=== PATIENT | male | born 1960 | race African-American/Black ===

== ENCOUNTER 2016-09-19 16:08 | Emergency (ER) | payer OTHER ==
[~2016-09-19] VITALS: Ht 175.3 cm; Wt 63.4 kg
[~2016-09-19 16:08] MED LIST: HYDR12.56; PERC5TAB12 PO; ZOFR4TAB3 SL
[2016-09-19 16:14] VITALS: BP 155/106; PULSE 68; RESP 16; TEMP 99.7; O2SAT 100
[2016-09-19] MEDS ORDERED: HYDR12.57 PO (16:31)
[2016-09-19 16:46] LABS: AUTOMATED NEUTROPHIL # 1.2 TH/MM3 (1.8-7.7); BASOPHIL # 0.1 TH/MM3 (0-0.2); BASOPHIL % 4.6 % (0.0-2.0); EOSINOPHIL # 0.1 TH/MM3 (0-0.4); EOSINOPHIL % 2.8 % (0.0-4.0); LYMPH % 26.2 % (9.0-44.0); LYMPHOCYTE # 0.6 TH/MM3 (1.0-4.8); MEAN CELL VOLUME 87.6 FL (80.0-100.0); MEAN CORPUSCULAR HEMOGLOBIN 29.3 PG (27.0-34.0); MEAN CORPUSCULAR HGB CONC 33.4 % (32.0-36.0); MONO % 13.3 % (0.0-8.0); NEUT % 53.1 % (16.0-70.0); PLATELET COUNT 210 TH/MM3 (150-450); RED BLOOD COUNT 4.46 MIL/MM3 (4.50-5.90); WHITE BLOOD COUNT 2.3 TH/MM3 (4.0-11.0)
[2016-09-19 16:52] LABS: HEMO FLAGS AUTO DIFF
[2016-09-19 16:55] LABS: CHLORIDE 106 MEQ/L (98-107); POTASSIUM 3.6 MEQ/L (3.5-5.1); SODIUM (NA) 142 MEQ/L (136-145)
--- NOTE | 2016-09-19 16:55 | PD ---
HPI Chief Complaint: Musculoskeletal Complaint Time Seen by Provider: 16:19 Travel History International Travel<30 days: No Contact w/Intl Traveler<30days: No Traveled to known affect area: No History of Present Illness HPI This 56-year-old male is complaining of pain and weakness in his legs. He says his symptoms started last Tuesday and got progressively worse. Says it is extremely painful last night and she could not get comfortable. He has been able to walk but it is not his normal gait. He has some tingling in his legs which is greater when the pain is severe. The pain is aggravated by walking. He says that on August 24 after doing a lot of heavy lifting at work he had some bad pain in his neck. He had some pain in his legs at that time but it seemed to get better. He has been having some pain in both sides of his groin. He had a right inguinal herniorrhaphy. He then was noted to have some left inguinal adenopathy palpable. Ears ago. 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 He was sent to an infectious disease specialist and apparently diagnosed with acute fever and was treated with He was having some pain in both sides of groin last week. She saw Dr. Lagos and had a CT scan which was negative. He has a history of hypertension. He does smoke. He has been having some midline back pain PFSH Past Medical History Cardiovascular Problems: Yes (htn) Diminished Hearing: No Hypertension: Yes Immunizations Current: Yes Influenza Vaccination: Yes ?: Not Past Surgical History Abdominal Surgery: Yes (waldo inguinal hernia repair) Social History Alcohol Use: Yes (social) Tobacco Use: Yes (1/2 pk a day) Substance Use: No Allergies-Medications (Allergen,Severity, Reaction): Coded Allergies: No Known Allergies (Verified , 09/19/16) Reported Meds & Prescriptions Reported Meds & Active Scripts Active Reported Hydrochlorothiazide 12.5 Mg Cap 12.5 Mg PO DAILY Review of Systems General / Constitutional: No: Fever, Chills Eyes: No: Blurred Vision HENT: No: Headaches, Vertigo Cardiovascular: No: Chest Pain or Discomfort Respiratory: No: Cough Gastrointestinal: No: Nausea Musculoskeletal: Positive: Myalgias, Pain Skin: No Rash, No Itching Neurologic: Positive: Weakness Hematologic/Lymphatic: No: Easy Bruising Physical Exam Narrative GENERAL: Well-developed male SKIN: Warm and dry. HEAD: Atraumatic. Normocephalic. EYES: Pupils equal and round. No scleral icterus. No injection or drainage. ENT: No nasal bleeding or discharge. Mucous membranes pink and moist. NECK: Trachea midline. No JVD. CARDIOVASCULAR: Regular rate and rhythm. No murmur appreciated. RESPIRATORY: No accessory muscle use. Clear to auscultation. Breath sounds equal bilaterally. GASTROINTESTINAL: Abdomen soft, non-tender, nondistended. Hepatic and splenic margins not palpable. MUSCULOSKELETAL: No obvious deformities. No clubbing. No cyanosis. No edema. There are good peripheral pulses NEUROLOGICAL: Awake and alert. No obvious cranial nerve deficits. Speech is normal. Strength in the arms is normal. He has 4 over 5 strength in the legs. He has 4 over 5 strength in extension at the knee and in plantar and dorsiflexion of the feet. The findings are bilateral.. Sensation is grossly intact though he says he feels some tingling. Patellar reflexes are brisk bilaterally. Babinski's are downgoing bilaterally PSYCHIATRIC: Appropriate mood and affect; insight and judgment normal. Data Data Last Documented VS Vital Signs Date Time Temp Pulse Resp B/P Pulse Ox O2 Delivery O2 Flow Rate FiO2 09/19/16 19:36 64 16 155/87 100 Room Air 09/19/16 16:14 99.7 Orders Complete Blood Count With Diff (09/19/16 16:35) Comprehensive Metabolic Panel (09/19/16 16:35) Creatine Kinase (Cpk) (09/19/16 16:35) C-Reactive Protein (Crp) (09/19/16 16:35) Urinalysis - C+S If Indicated (09/19/16 16:35) Westergren Sedimentation Rate (09/19/16 16:35) Magnesium (Mg) (09/19/16 16:35) Thyroid Stimulating Hormone (09/19/16 16:35) Mri C Spine W/O Contrast (09/19/16 16:44) Mri T Spine W/O Contrast (09/19/16 16:44) Mri L Spine W/O Contrast (09/19/16 16:44) Chest, Single Ap (09/19/16 16:44) Ondansetron Inj (Zofran Inj) (09/19/16 17:00) Hydromorphone Pf Inj (Dilaudid Pf Inj) (09/19/16 17:00) Hydromorphone Pf Inj (Dilaudid Pf Inj) (09/19/16 17:45) Hydromorphone Pf Inj (Dilaudid Pf Inj) (09/19/16 18:30) Dexamethasone Inj (Decadron Inj) (09/19/16 19:30) Labs Laboratory Tests Test 09/19/16 09/19/16 16:35 18:55 White Blood Count 2.3 TH/MM3 Red Blood Count 4.46 MIL/MM3 Hemoglobin 13.1 GM/DL Hematocrit 39.0 % Mean Corpuscular Volume 87.6 FL Mean Corpuscular Hemoglobin 29.3 PG Mean Corpuscular Hemoglobin 33.4 % Concent Red Cell Distribution Width 12.0 % Platelet Count 210 TH/MM3 Mean Platelet Volume 9.5 FL Neutrophils (%) (Auto) 53.1 % Lymphocytes (%) (Auto) 26.2 % Monocytes (%) (Auto) 13.3 % Eosinophils (%) (Auto) 2.8 % Basophils (%) (Auto) 4.6 % Neutrophils # (Auto) 1.2 TH/MM3 Lymphocytes # (Auto) 0.6 TH/MM3 Monocytes # (Auto) 0.3 TH/MM3 Eosinophils # (Auto) 0.1 TH/MM3 Basophils # (Auto) 0.1 TH/MM3 CBC Comment AUTO DIFF Differential Total Cells 100 Counted Neutrophils % (Manual) 56 % Band Neutrophils % 3 % Lymphocytes % 28 % Monocytes % 13 % Neutrophils # (Manual) 1.4 TH/MM3 Differential Comment FINAL DIFF MANUAL Erythrocyte Sedimentation Rate 37 mm/hr Sodium Level 142 MEQ/L Potassium Level 3.6 MEQ/L Chloride Level 106 MEQ/L Carbon Dioxide Level 29.1 MEQ/L Anion Gap 7 MEQ/L Blood Urea Nitrogen 12 MG/DL Creatinine 1.10 MG/DL Estimat Glomerular Filtration 85 ML/MIN Rate Random Glucose 99 MG/DL Calcium Level 8.4 MG/DL Magnesium Level 2.2 MG/DL Total Bilirubin 0.5 MG/DL Aspartate Amino Transf 30 U/L (AST/SGOT) Alanine Aminotransferase 37 U/L (ALT/SGPT) Alkaline Phosphatase 71 U/L Total Creatine Kinase 104 U/L C-Reactive Protein 0.97 MG/DL Total Protein 8.2 GM/DL Albumin 3.8 GM/DL Thyroid Stimulating Hormone 2.310 uIU/ML 3rd Gen Urine Collection Type CLEAN CATCH Urine Color YELLOW Urine Turbidity SLIGHT Urine pH 6.0 Urine Specific [place] 1.019 Urine Protein NEG mg/dL Urine Glucose (UA) NEG mg/dL Urine Ketones NEG mg/dL Urine Occult Blood NEG Urine Nitrite NEG Urine Bilirubin NEG Urine Leukocyte Esterase NEG Urine Squamous Epithelial 0-5 /hpf Cells Urine Amorphous Sediment MOD Urine Mucus OCC /lpf Microscopic Urinalysis Comment CULT NOT INDICATED MDM Medical Decision Making Medical Screen Exam Complete: Yes Emergency Medical Condition: Yes Medical Record Reviewed: Yes Differential Diagnosis Differential includes myelopathy, polyneuritis Narrative Course he is quite comfortable with pain and given pain medication with really minimal response. His areas that hurt him are nontender to touch and are not swollen. His white count is low at 2.3 and sedimentation rate is elevated at 37. MRI of the thoracic and lumbar spine did not show any myelopathy. On the cervical spine scan there is T2 prolongation in the anterior portion of the lower cervical cord myelopathy cannot be excluded. There is no evidence of disc bulge or protrusion. I have discussed the case with Dr. Arriaga. He recommends Decadron 4 mg every 6, admission to the [facility] with consults to him and to neurology. Repeat examination after some pain medication actually shows what appears to be increased strength in plantar and dorsiflexion of the foot though extension of the knee is still quite weak. I discussed the patient that we would admit him to [facility] and follow this plan. At this point the patient says he cannot be admitted and is insisting on leaving. He says he will go to [facility] in the morning for admission I have explained to him I don't think this is advisable. We have not established a firm diagnosis and there is risk of paralysis. The risk of paralysis Was explained to the patient. He is alert and coherent and understands. He will sign against advice. Diagnosis Primary Impression: Bilateral leg weakness Disposition: 07 AGAINST MEDICAL ADVICE Mike Garcia MD Sep 19, 2016 16:55
[2016-09-19 16:59] LABS: ANION GAP 7 MEQ/L (5-15); BICARBONATE 29.1 MEQ/L (21.0-32.0); BLOOD UREA NITROGEN 12 MG/DL (7-18); MAGNESIUM 2.2 MG/DL (1.5-2.5)
[2016-09-19] MEDS ORDERED: HYDROmorphone HCL PF 1 MG/ML VIAL IV PUSH ONE ×3 (17:00→18:30)
[2016-09-19] MEDS ORDERED: ONDANSETRON HCL 4 MG/2 ML VIAL IV PUSH ONE (17:00)
[2016-09-19 17:02] LABS: ALT (GPT) 37 U/L (12-78); AST (GOT) 30 U/L (15-37); GLOMERULAR FILTRATION RATE 85 ML/MIN (>89)
[2016-09-19 17:03] LABS: TOTAL BILIRUBIN ADULT 0.5 MG/DL (0.2-1.0)
[2016-09-19 17:05] LABS: ALKALINE PHOSPHATASE 71 U/L (45-117); CREATINE KINASE 104 U/L (39-308)
[2016-09-19 17:07] VITALS: BP 157/83; PULSE 67; RESP 18; O2SAT 98
[2016-09-19 17:12] LABS: BANDS 3 % (0-6); NEUTROPHIL # MANUAL DIFF 1.4 TH/MM3 (1.8-7.7); POLYS (SEG NEUTROPHILS) 56 % (16-70); WBC DIFF SAMPLE 100
[2016-09-19 17:13] LABS: SCAN/DIFF FINAL DIFF MANUAL
--- NOTE | 2016-09-19 17:15 | RADHPO ---
EXAM DATE/TIME: 09/19/2016 16:54 [facility] COMPARISON: CHEST SINGLE AP, April 30, 2011, 15:15. INDICATIONS : Mass. bilateral leg swelling MEDICAL HISTORY : None. SURGICAL HISTORY : None. ENCOUNTER: Initial ACUITY: 2 days PAIN SCORE: 0/10 LOCATION: Bilateral chest FINDINGS: A single view of the chest demonstrates the lungs to be symmetrically aerated without evidence of mas s, infiltrate or effusion. The cardiomediastinal contours are unremarkable. Osseous structures are intact. CONCLUSION: The lungs are clear. Shine Mejia MD on September 19, 2016 at 17:14 Board Certified Radiologist. This report was verified electronically.
--- NOTE | 2016-09-19 18:33 | RADHPO ---
EXAM DATE/TIME: 09/19/2016 18:21 [facility] COMPARISON: No previous studies available for comparison. INDICATIONS : Lower extremity pain. MEDICAL HISTORY : Hypertension. SURGICAL HISTORY : Inguinal hernia repair. ENCOUNTER: Subsequent ACUITY: 2 weeks PAIN SCORE: 2/10 LOCATION: Bilateral legs TECHNIQUE: Multiplanar multisequence MRI of the thoracic spine was performed. FINDINGS: Image quality is compromised by motion artifact. Small abnormalities may go undetected. The study i s still diagnostic for evaluation of marrow abnormalities, compression deformities, and epidural impr essions. There is normal alignment of the vertebral bodies of the thoracic spine preservation of mahsa tebral body height. No signal abnormality seen. There is normal hydration of the inter vertebral di scs. No significant epidural compression seen. The thoracic cord is normal in dimension and no foca l signal abnormality is seen. The conus is at the level of T12-L1. CONCLUSION: No gross abnormality seen. Shine Mejia MD on September 19, 2016 at 18:28 Board Certified Radiologist. This report was verified electronically.
--- NOTE | 2016-09-19 18:51 | RADHPO ---
EXAM DATE/TIME: 09/19/2016 18:21 [facility] COMPARISON: CHEST SINGLE AP, September 19, 2016, 16:54. INDICATIONS : Lower extremity pain. MEDICAL HISTORY : Hypertension. SURGICAL HISTORY : Inguinal hernia repair. ENCOUNTER: Subsequent ACUITY: 2 weeks PAIN SCORE: 2/10 LOCATION: Bilateral legs TECHNIQUE: Multiplanar multisequence MRI of the lumbar spine was performed without contrast. FINDINGS: The most caudal appearing lumbar vertebra is numbered as L6. This examination was performed in conju nction with entire spine imaging ND counting convention begins in the cervical spine. VERTEBRAE: Homogeneous signal. Normal alignment. CONUS: Normal level and configuration. T12-L1: The thecal sac has a normal diameter. No evidence of disc bulge or protrusion. The neural foramina are patent bilaterally. L1-L2: The thecal sac has a normal diameter. No evidence of disc bulge or protrusion. The neural foramina are patent bilaterally. L2-L3: The thecal sac has a normal diameter. No evidence of disc bulge or protrusion. The neural foramina are patent bilaterally. L3-L4: The thecal sac has a normal diameter. No evidence of disc bulge or protrusion. The neural foramina are patent bilaterally. L4-L5: The thecal sac has a normal diameter. No evidence of disc bulge or protrusion. The neural foramina are patent bilaterally. L5-S1: High intensity zone of signal in the posterior annulus and protrusion of the posterior disc contained within the epidural fat. No deformity or deviation of the S1 nerve roots and the neural foramina ar e patent bilaterally. CONCLUSION: Central disc protrusion at L6/S1 with associated annular tear contained within the epidural fat and w ithout extension into the neural foramina or neural impingement. Shine Mejia MD on September 19, 2016 at 18:46 Board Certified Radiologist. This report was verified electronically.
--- NOTE | 2016-09-19 19:00 | RADHPO ---
EXAM DATE/TIME: 09/19/2016 18:21 [facility] COMPARISON: No previous studies available for comparison. INDICATIONS : Lower extremity pain. MEDICAL HISTORY : Hypertension. SURGICAL HISTORY : Inguinal hernia repair. ENCOUNTER: Subsequent ACUITY: 2 weeks PAIN SCORE: 2/10 LOCATION: Bilateral legs TECHNIQUE: Multiplanar, multisequence MRI examination of the cervical spine was performed. FINDINGS: VERTEBRAE: Normal vertebral body height. Homogeneous marrow signal. ALIGNMENT: No evidence of subluxation. CORD: Questionable T2 prolongation in the anterior one third of the substance of the cervical spine C5-C7. No evidence of cord compression. There is very little CSF about the cervical cord due to a narrow c onfiguration of the bony spinal canal. No signal abnormalities within the substance of the cord. No evidence of syrinx.. POST FOSSA: The cerebellar tonsils are normal in position. C2-C3: Smooth margins to the thecal sac. No evidence of disc bulge or protrusion. The neural foramen are p atent. C3-C4: Smooth margins the thecal sac. No evidence of disc bulge or protrusion. The neural foramina are pat ent. C4-C5: Smooth margins the thecal sac. No evidence of disc bulge or protrusion. The neural foramina are pat ent. C5-C6: Smooth margins to the thecal sac. No evidence of disc bulge or protrusion. The neural foramina are patent. C6-C7: Smooth margins to the thecal sac. There is no evidence of disc bulge or protrusion. The neural fora nimco are patent bilaterally. C7-T1: Smooth margins to the thecal sac. No evidence of disc bulge or protrusion. The neural foramen are p atent. CONCLUSION: The clinical findings is suggestive of T2 prolongation in the anterior traction of the lower cervical cord. Cannot exclude myelopathy. No evidence of disc bulge or protrusion. Shine Mejia MD on September 19, 2016 at 18:53 Board Certified Radiologist. This report was verified electronically.
[2016-09-19 19:08] LABS: BLOOD, URINE NEG (NEG); GLUCOSE,URINE NEG (NEG); KETONE, URINE NEG (NEG); NITRITE,URINE NEG (NEG)
[2016-09-19 19:18] LABS: METHOD OF COLLECTION CLEAN CATCH; URINE COLOR YELLOW (YELLW/STRAW)
[2016-09-19 19:20] LABS: MUCUS URINE OCC /lpf (OCC); SQUAMOUS EPITHELIAL CELL URINE 0-5 /hpf (0-5)
[2016-09-19 19:22] LABS: COMMENT (UR) CULT NOT INDICATED; CULTURE IF INDICATED CULT NOT INDICATED
[2016-09-19] MEDS ORDERED: DEXAMETHASONE SOD PHOS 4 MG/ML VIAL IV PUSH ONE (19:30)
[2016-09-19 19:36] VITALS: BP 155/87; PULSE 64; RESP 16; O2SAT 100
== END 2016-09-19 19:53 | disposition left against medical advice (07) ==
LOC: PHED 16:08
DX: R53.1 Weakness (principal); I10 Essential (primary) hypertension; M54.2 Cervicalgia; M79.1 Myalgia; F17.200 Nicotine dependence, unspecified, uncomplicated; Z79.899 Other long term (current) drug therapy
CPT/HCPCS: 71010; 72141; 72146; 72148; 80053; 81001; 82550; 83735; 84443; 85007; 85027; 85652; 86140; 96374; 96375; 96376; 99285; J1100; J1170; J2405

== ENCOUNTER 2016-09-20 12:54 | Inpatient (IN) | payer SELFPAY ==
[~2016-09-20] VITALS: Ht 175.3 cm; Wt 67.0 kg
[~2016-09-20 12:54] MED LIST changes: -HYDR12.56; +HYDR12.57 PO; -PERC5TAB12 PO; -ZOFR4TAB3 SL
[2016-09-20 12:56] VITALS: BP 179/91; PULSE 86; RESP 15; TEMP 98.2; O2SAT 97
--- NOTE | 2016-09-20 13:38 | PD ---
HPI Chief Complaint: Pain: Acute or Chronic Time Seen by Provider: 13:35 Travel History International Travel<30 days: No Contact w/Intl Traveler<30days: No Traveled to known affect area: No History of Present Illness HPI 56-year-old male with history of hypertension presents to emergency department for admission. Patient was seen and evaluated last night in the emergency department for evaluation of lower extremity pain and weakness worsening over the last several months. He decided to be evaluated yesterday due to worsening and his gait becoming abnormal. MRI was complete and showed T2 prolongation of the anterior traction of the lower cervical cord. Myelopathy cannot be excluded. Dr. Spring discussed the patient with Dr. Arriaga, neurosurgeon who was on -call less evening. He recommended admission for Decadron IV every 6 hours. Patient left AGAINST MEDICAL ADVICE last evening. He returns today for admission. He does report after Decadron that he some of his symptoms have improved but he understands the potential seriousness and decided to return to the emergency department. [facility] Past Medical History Cardiovascular Problems: Yes (htn) Diminished Hearing: No Hypertension: Yes Immunizations Current: Yes Past Surgical History Abdominal Surgery: Yes (waldo inguinal hernia repair) Social History Alcohol Use: Yes (social) Tobacco Use: Yes (1/2 pk a day) Substance Use: No Allergies-Medications (Allergen,Severity, Reaction): Coded Allergies: No Known Allergies (Verified , 09/19/16) Reported Meds & Prescriptions Reported Meds & Active Scripts Active Reported Hydrochlorothiazide 12.5 Mg Cap 12.5 Mg PO DAILY Review of Systems Except as stated in HPI: all other systems reviewed are Neg Physical Exam Narrative GENERAL: Well-nourished male patient who is ambulatory here in the emergency department and in no acute distress SKIN: Warm and dry. HEAD: Atraumatic. Normocephalic. EYES: Pupils equal and round. No scleral icterus. No injection or drainage. ENT: No nasal bleeding or discharge. Mucous membranes pink and moist. NECK: Trachea midline. No JVD. CARDIOVASCULAR: Regular rate and rhythm. No murmur appreciated. RESPIRATORY: No accessory muscle use. Clear to auscultation. Breath sounds equal bilaterally. GASTROINTESTINAL: Abdomen soft, non-tender, nondistended. Hepatic and splenic margins not palpable. MUSCULOSKELETAL: No obvious deformities. No clubbing. No cyanosis. No edema. NEUROLOGICAL: Awake and alert. No obvious cranial nerve deficits. Normal speech. PSYCHIATRIC: Appropriate mood and affect; insight and judgment normal. Data Data Last Documented VS Vital Signs Date Time Temp Pulse Resp B/P Pulse Ox O2 Delivery O2 Flow Rate FiO2 09/20/16 12:56 98.2 86 15 179/91 97 Orders Consult Neurology (09/20/16 ) Consult Neurosurgery (09/20/16 ) Dexamethasone Inj (Decadron Inj) (09/20/16 14:15) Iv Access Insert/Monitor (09/20/16 14:15) Admit Order (Ed Use Only) (09/20/16 14:25) Admit To Inpatient (09/20/16 ) Vital Signs (Adult) Q4H (09/20/16 14:24) Activity Bed Rest (09/20/16 14:24) Diet Regular Basic (09/20/16 Dinner) Sodium Chlor 0.45% 1000 Ml Inj (08/23 Ns 1 (09/20/16 14:24) Sodium Chloride 0.9% Flush (Ns Flush) (09/20/16 14:30) Sodium Chloride 0.9% Flush (Ns Flush) (09/20/16 21:00) Ondansetron Inj (Zofran Inj) (09/20/16 14:30) Docusate Sodium (Colace) (09/20/16 14:30) Basic Metabolic Panel (Bmp) (09/21/16 06:00) Complete Blood Count With Diff (09/21/16 06:00) Heparin Inj (Heparin Inj) (09/20/16 14:30) Naloxone Inj (Narcan Inj) (09/20/16 14:30) Inpatient Certification (09/20/16 ) [facility] Medical Decision Making Medical Screen Exam Complete: Yes Emergency Medical Condition: Yes Medical Record Reviewed: Yes Differential Diagnosis Myelopathy versus radiculopathy versus discogenic pain versus sciatica Narrative Course 56-year-old male presents to emergency department for admission and IV Decadron per neurosurgery recommendation after checking himself out AGAINST MEDICAL ADVICE less evening. MRI was completed last night and showed a T2 prolongation of the anterior traction of the lower cervical cord and myelopathy cannot be excluded. I have assessed the patient here in triage. Complete workup was done last evening. Once a medical bed becomes available, patient will be transferred and care assumed by that provider. Condition: Stable Yasmin Sheridan Sep 20, 2016 13:38
[2016-09-20] MEDS ORDERED: DEXAMETHASONE SOD PHOS 4 MG/ML VIAL IV PUSH ONE (14:15)
--- NOTE | 2016-09-20 14:26 | PD ---
Physical Exam Date Seen by Provider: Sep 20, 2016 Time Seen by Provider: 14:17 Narrative This is a 56-year-old male presents to the emergency department for admission. He was seen last night at [facility]. He presented there complaining of pain and weakness in his bilateral legs that started last Tuesday and been progressively worsening. He states that he has an abnormal gait from this issue. He also reports some paresthesias. He does report pain in the bilateral groin as well as some low back pain as well. Does report a history of left inguinal adenopathy. Patient does report a history of hypertension and takes one blood pressure medication. He also is taking tramadol as needed for the pain. MRIs were completed. MRI thoracic and lumbar spine did not show any myelopathy. On the cervical spine and, there is a T2 prolongation the anterior portion lower cervical cord a myelopathy cannot be excluded. The emergency physician Spoke to Dr. Arriaga he recommended Decadron 4 mg every 6 hours, admission and consult to Dr. Arriaga and urology. However, the patient states he had some things to do this morning sustained AGAINST MEDICAL ADVICE and now presents for admission. GENERAL: Well-developed well-nourished male patient, afebrile. SKIN: Warm and dry. HEAD: Normocephalic. Atraumatic EYES: No scleral icterus. No injection or drainage. NECK: Supple, trachea midline. No JVD or lymphadenopathy. CARDIOVASCULAR: Regular rate and rhythm without murmurs, gallops, or rubs. Bilateral radial and pedal pulses 2+ RESPIRATORY: Breath sounds equal bilaterally. No accessory muscle use. Lungs sounds clear to auscultation GASTROINTESTINAL: Abdomen soft, non-tender, nondistended. MUSCULOSKELETAL: No cyanosis, or edema. Bilateral lower extremity strength 4/ 5. Bilateral upper extremity strength 5/5. Sensation is grossly intact though he says he feels some tingling. BACK: Nontender without obvious deformity. No CVA tenderness. Data Data Last Documented VS Vital Signs Date Time Temp Pulse Resp B/P Pulse Ox O2 Delivery O2 Flow Rate FiO2 09/20/16 12:56 98.2 86 15 179/91 97 Orders Consult Neurology (09/20/16 ) Consult Neurosurgery (09/20/16 ) Dexamethasone Inj (Decadron Inj) (09/20/16 14:15) Iv Access Insert/Monitor (09/20/16 14:15) [facility] Medical Record Reviewed: Yes Supervised Visit with YANY: Yes Differential Diagnosis myelopathy, polyneuritis, electrolyte abnormality Narrative Course 56-year-old male presents to the emergency department for admission. He was seen last night and was to be admitted for myelopathy with prolongation of T2 in the anterior portion of the lower cervical cord. Patient left AMA and came in today. Patient is given Decadron 4 mg IV. IV access established. I suspected Dr. Lema with [facility] hospitalist who accepted admission. Consults were placed for Dr. Arriaga and neurology. Diagnosis Primary Impression: Myelopathy Admitting Information Admitting Physician Requests: Observation Zuleika Horne Sep 20, 2016 14:26
[2016-09-20] MEDS ORDERED: DOCUSATE SODIUM 100 MG CAP PO SCH (14:30)
[2016-09-20] MEDS ORDERED: SODIUM CHLORIDE 0.9% FLUSH 5 ML FLUSH FLUSH PRN (14:30)
[2016-09-20] MEDS ORDERED: NALOXONE HCL 0.4 MG/ML AMP IV PRN (14:30)
[2016-09-20] MEDS ORDERED: ACETAMINOPHEN/HYDROcodone 325 MG/5 MG TAB PO ONE (15:00)
[2016-09-20] MEDS: SODIUM CHLOR 0.45% 1000 ML INJ 1,000 ML IV SCH (15:00)
[2016-09-20] MEDS ORDERED: HEPARIN SODIUM - SQ 10,000 UNITS/ML VIAL SQ SCH (15:00)
--- NOTE | 2016-09-20 15:00 | PD ---
Data Data Last Documented VS Vital Signs Date Time Temp Pulse Resp B/P Pulse Ox O2 Delivery O2 Flow Rate FiO2 09/20/16 12:56 98.2 86 15 179/91 97 Orders Consult Neurology (09/20/16 ) Consult Neurosurgery (09/20/16 ) Dexamethasone Inj (Decadron Inj) (09/20/16 14:15) Iv Access Insert/Monitor (09/20/16 14:15) Admit Order (Ed Use Only) (09/20/16 14:25) MDM Supervised Visit with YANY: Yes Narrative Course I, Dr. Lopez, have reviewed the advance practice practioner's documentation and am in agreement, met with the patient face to face, made the diagnosis, and the medical decision making was done by me. *My assessment and Findings: Thin male here with complaint of pain and weakness in the bilateral lower extremities lasting approximately 5-6 days. Seen at our [place] emergency department yesterday with an abnormal MRI of the cervical spine, recommended admission the patient signed out AMA as he needed to get things done at home, presents back to the ER today with persistent symptoms requesting admission. On exam patient has 4 out of 5 strength in the bilateral lower extremities. His reflexes are 1+, sensation is grossly intact but he does complain of subjective paresthesias. Differential includes neuropathy, cervical myelopathy, other. Patient will be admitted given previous imaging yesterday with neurosurgery and neurology consults, steroids. Diagnosis Primary Impression: Myelopathy Luiza Lopez MD Sep 20, 2016 15:00
--- NOTE | 2016-09-20 17:48 | PD.PN.STU ---
Subjective Remarks Subjective: This is a 56 year old man who presented to the ED with a complaint of pain and weakness in the bilateral lower extremities. He says this began Donte night. He describes the pain as a tingling sensation which causes his legs to tense and feel numb. He became concerned when it began to affect his gait. He denies injury to the spinal cord. He denies saddle anesthesia. He went to [facility] 09/19 and had an abnormal MRI of the cervical spine. He was told to come to [facility] but he left AMA to return home because he "had some things to do at home." PMH: Hypertension Medications: HCTZ 12.5 mg PO daily PSH: bilateral inguinal hernia repair biopsy lymph node in left groin for suspected hernia FH: unremarkable Allergies: NKDA Social history: Alcohol: socially Tobacco: /2 ppd Illicit Drug Use: denies Review of systems: Positive: weakness in bilateral lower extremities, pain in bilateral lower extremities Negative: chest pain, shortness of breath, nausea/vomiting, loss of consciousness, dysuria Objective Vitals Vital Signs Date Time Temp Pulse Resp B/P Pulse Ox O2 Delivery O2 Flow Rate FiO2 09/20/16 12:56 98.2 86 15 179/91 97 Other Results ESR: 37 CRP: 0.97 Q fever Phase II IgG Ab: Positive Imaging MRI of the cervical spine showed T2 prolongation of anterior portion lower cervical cord. MRI of the lumbar spine showed central disc protrusion at L6/S2 with associated annular tear contained within the epidural fat and without extension into the neural foramina or neural impingement. Objective Remarks General: thin man who is alert, awake, oriented x3 HEENT: pupils reactive to light, equal, extraocular movements intact Neck: trachea midline and supple, no masses appreciated Cardiac: S1S2 RRR, no murmurs, gallops, rubs appreciated Pulm: no accessory muscle use, clear to auscultation GI: bowel sounds appreciated in all four quadrants, tender to palpation in LLQ, palpated mass on left side of abdomen MSK: weakness bilaterally in lower extremities A/P Assessment and Plan Cervical myelopathy: consult neurosurgery continue Decardron Hypertension: 179/91 on admission see if he had taken his meds today? continue home prescriptions Questionable abdominal mass: CT scan Des Muñoz M3 Sep 20, 2016 17:48
[2016-09-20 17:50] VITALS: BP 160/86; PULSE 66; RESP 18; TEMP 99.4; O2SAT 99
[2016-09-20] MEDS ORDERED: LORazepam 2 MG TAB PO ONE (18:45)
--- NOTE | 2016-09-20 18:57 | PD.CONS ---
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 He still has excruciating pain in the groin which has been constant since 2014. He denies fevers or chills. He had no rashes or contact with animals. Last Tuesday he felt a severe neck pull. Tuesday he felt a severe lower back pain radiating to both lower extremities. When the pain is severe he cannot walk and feels very constipated. After pain medication he is able to walk and void but his stool is small, very dark in color and hard. CT of the abdomen/pelvis showed an adrenal adenoma. MRI of the cervical spine showed a T2 weighted abnormality within the canal. MRI of the LS spine showed a ligament tear at L5S1. He remains alert. Decadron and pain medication did help his pain. Review of Systems Constitutional: COMPLAINS OF: Fatigue Endocrine: DENIES: Heat/cold intolerance, Polydipsia, Polyuria, Polyphagia Eyes: DENIES: Blurred vision, Diplopia, Eye inflammation, Eye pain, Vision loss , Photosensitivity, Double Vision Ears, nose, mouth, throat: DENIES: Tinnitus, Hearing loss, Vertigo, Nasal discharge, Oral lesions, Throat pain, Hoarseness, Ear Pain, Running Nose, Epistaxis, Sinus Pain, Toothache, Odynophagia Respiratory: DENIES: Apneas, Cough, Snoring, Wheezing, Hemoptysis, Sputum production, Shortness of breath Gastrointestinal: COMPLAINS OF: Constipation, DENIES: Abdominal pain, Black stools, Bloody stools, Diarrhea, Nausea, Vomiting, Difficulty Swallowing, Anorexia Genitourinary: DENIES: Sexual dysfunction, Urinary frequency, Urinary incontinence, Urgency, Hematuria, Dysuria, Nocturia, Penile Discharge, Testicular Pain, Testicular Swelling Musculoskeletal: COMPLAINS OF: Muscle aches, Back pain Integumentary: DENIES: Abnormal pigmentation, Nail changes, Pruritus, Rash Hematologic/lymphatic: DENIES: Bruising, Lymphadenopathy Immunologic/allergic: DENIES: Eczema, Urticaria Neurologic: COMPLAINS OF: Localized weakness, DENIES: Abnormal gait, Headache , Paresthesias, Seizures, Speech Problems, Tremor, Poor Balance Psychiatric: DENIES: Anxiety, Confusion, Mood changes, Depression, Hallucinations, Agitation, Suicidal Ideation, Homicidal Ideation, Delusions Past Family Social History Allergies: Coded Allergies: No Known Allergies (Verified , 09/19/16) Past Medical History HTN Past Surgical History Hernia repair and biopsy Reported Medications Reported Meds & Active Scripts Active Reported Hydrochlorothiazide 12.5 Mg Cap 12.5 Mg PO DAILY Family History Both parents are alive.. The mother has valve disease. Social History Lives alone, 1/2 ppd, no ETOH Physical Exam Vital Signs Vital Signs Date Time Temp Pulse Resp B/P Pulse Ox O2 Delivery O2 Flow Rate FiO2 09/20/16 17:50 99.4 66 18 160/86 99 09/20/16 12:56 98.2 86 15 179/91 97 Physical Exam Alert and oriented x 3, face symmetric, tongue midline, Motor intact in both delt/bic/tri/IO, weaker in the left leg with pain 4/5 in the left hip flexor/quad/at gastroc, 5/5 on the left HF/quad/AT/gastroc No sensory level, no CPA tenderness, mild lower back tenderness. 3/4 in the bic/tri/patella no Lucio, no Babinski Abd scaphoid, no peripheral edema, no rashes appreciated Gait stable but slowed by inguinal pain. Assessment and Plan Diagnosis: (1) Granulomatous lymphadenitis Plan: Diagnosed by biopsy, 2014, has had chronic pain and inflammation in the groin since then ICD Code: I88.1 (2) HTN (hypertension) Plan: Severe, work up pending ICD Code: I10 (3) Adrenal abnormality ICD Code: E27.9 (4) Myelopathy Plan: T2 weighted abnormality with no sensory or motor level, LP recommended ICD Code: G95.9 (5) Bilateral leg weakness Plan: Weakness is present when the pain is severe. Pain management initiated. ICD Code: R29.898 (6) Degenerative disc disease at L5-S1 level Plan: Mild ligament tear at L5S1. Muscle relaxers initiated as well as OT/PT ICD Code: M51.36 Juan Jose Turner Sep 20, 2016 18:57
[2016-09-20] MEDS: SODIUM CHLORIDE 0.9% FLUSH 5 ML FLUSH FLUSH SCH (22:08)
[2016-09-20] MEDS: MORPHINE SULFATE 30 MG CONTROLLED RELEASE TAB PO SCH (22:08)
[2016-09-20] MEDS: DOCUSATE SODIUM 100 MG CAP PO SCH (22:08)
--- NOTE | 2016-09-20 22:45 | HHI.HP ---
[facility] Service [facility] Primary Care Physician Ez Lino, DO Admission Diagnosis cervical myelopathy Diagnoses: Travel History International Travel<30 Days: No Contact w/Intl Traveler <30 Da: No Traveled to Known Affected Are: No History of Present Illness This is a 56 year old man who presented to the ED with a complaint of pain and weakness in the bilateral lower extremities. He says this began Tuesday night. He describes the pain as a tingling sensation which causes his legs to tense and feel numb. He became concerned when it began to affect his gait. He denies injury to the spinal cord. He denies saddle anesthesia. He went to [facility] 09/19 and had an abnormal MRI of the cervical spine. He was told to come to [facility] but he left AMA to return home because he "had some things to do at home. 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, this was followed by neck and back pain." Review of Systems Other Neck and back pain, lower extremity weakness, weight loss, poor appetite, , He denies any significant outdoor activity, does not remember any tick bites, 10 systems review is otherwise negative Past Family Social History Past Medical History Hypertension Lymphadenopathy Weight loss of unclear reason Past Surgical History bilateral inguinal hernia repair biopsy lymph node in left groin for suspected hernia Reported Medications Hydrochlorothiazide 12.5 Mg Cap 12.5 Mg PO DAILY Allergies: Coded Allergies: No Known Allergies (Verified , 09/19/16) Family History Reviewed but noncontributory Social History No Smoking , Excessive alcohol or illicit drug use Physical Exam Vital Signs Vital Signs Date Time Temp Pulse Resp B/P Pulse Ox O2 Delivery O2 Flow Rate FiO2 09/20/16 17:50 99.4 66 18 160/86 99 09/20/16 12:56 98.2 86 15 179/91 97 Physical Exam GENERAL: This is a well-nourished, well-developed patient, in no apparent distress. SKIN: No rashes, ecchymoses or lesions. Cool and dry. HEAD: Atraumatic. Normocephalic. No temporal or scalp tenderness. EYES: Pupils equal round and reactive. Extraocular motions intact. No scleral icterus. No injection or drainage. ENT: Nose without bleeding, purulent drainage or septal hematoma. Throat without erythema, tonsillar hypertrophy or exudate. Uvula midline. Airway patent. NECK: Trachea midline. No JVD or lymphadenopathy. Supple, nontender, no meningeal signs. CARDIOVASCULAR: Regular rate and rhythm without murmurs, gallops, or rubs. RESPIRATORY: Clear to auscultation. Breath sounds equal bilaterally. No wheezes , rales, or rhonchi. GASTROINTESTINAL: Abdomen soft, non-tender, nondistended. No hepato-splenomegaly , or palpable masses. No guarding. MUSCULOSKELETAL: Extremities without clubbing, cyanosis, or edema. Has some very small lymphadenopathy in both groins, the left side is tender NEUROLOGICAL: Awake and alert. Cranial nerves II through XII intact. Motor and sensory grossly within normal limits. Five out of 5 muscle strength in all muscle groups. Normal speech. Laboratory Laboratory Tests Test 09/20/16 21:05 Erythrocyte Sedimentation Rate 28 Date/Time Procedure Status Source Growth 09/20/16 21:05 Aerobic Blood Culture Received Blood Peripheral Pending 09/20/16 21:05 Anaerobic Blood Culture Received Blood Peripheral Pending Imaging Recent MRI of the Cervical spine from yesterday Was reported as showing Prolongation of the inferior Section of the lower Cervical spine On T2 images Assessment and Plan Assessment and Plan Assessment Lower extremity weakness. Lymphadenopathy. Question myelopathy Poorly controlled hypertension. Previously positive Q fever serology, significance unclear. Leukopenia. Management. The patient has been admitted to the medical floor. Neurosurgery consult. Neurology consult Infectious disease specialist, consulted. DVT prophylaxis. Continue home medications. Discussed with patient. Discussed with emergency physician. Physician Certification 2 Midnight Certification Type: Admission for Inpatient Services Order for Inpatient Services The services are ordered in accordance with Medicare regulations or non- Medicare payer requirements, as applicable. In the case of services not specified as inpatient-only, they are appropriately provided as inpatient services in accordance with the 2-midnight benchmark. Estimated LOS (days): 2 days is the estimated time the patient will need to remain in the hospital, assuming treatment plan goals are met and no additional complications. Post-Hospital Plan: Home Alan Lema MD Sep 20, 2016 22:45
[2016-09-21] VITALS: BP 149/83; PULSE 68; RESP 16; TEMP 96.5; O2SAT 99
[2016-09-21 04:00] VITALS: BP 137/82; PULSE 67; RESP 17; TEMP 96.9; O2SAT 98
[2016-09-21] MEDS: SODIUM CHLOR 0.45% 1000 ML INJ 1,000 ML IV SCH ×2 (04:53→17:40)
[2016-09-21 06:11] LABS: AUTOMATED NEUTROPHIL # 0.9 TH/MM3 (1.8-7.7); EOSINOPHIL % 0.1 % (0.0-4.0); LYMPH % 28.9 % (9.0-44.0); LYMPHOCYTE # 0.5 TH/MM3 (1.0-4.8); MEAN CELL VOLUME 87.2 FL (80.0-100.0); MEAN CORPUSCULAR HEMOGLOBIN 29.1 PG (27.0-34.0); MEAN CORPUSCULAR HGB CONC 33.3 % (32.0-36.0); MONO % 21.1 % (0.0-8.0); NEUT % 48.9 % (16.0-70.0); PLATELET COUNT 200 TH/MM3 (150-450); RED BLOOD COUNT 4.12 MIL/MM3 (4.50-5.90); RED CELL DISTRIBUTION WIDTH 13.1 % (11.6-17.2); WHITE BLOOD COUNT 1.9 TH/MM3 (4.0-11.0)
[2016-09-21 06:30] LABS: BICARBONATE 27.3 MEQ/L (21.0-32.0)
[2016-09-21 07:10] LABS: HEMO FLAGS AUTO DIFF
[2016-09-21 07:15] LABS: BASOPHILS 2 % (0-2); NEUTROPHIL # MANUAL DIFF 1.1 TH/MM3 (1.8-7.7); PLATELET ESTIMATE SMEAR NORMAL (NORMAL); POLYS (SEG NEUTROPHILS) 60 % (16-70); SCAN/DIFF FINAL DIFF MANUAL; WBC DIFF SAMPLE 100
[2016-09-21 07:16] LABS: PLATELET MORPHOLOGY ENLARGED (NORMAL)
[2016-09-21 08:00] VITALS: BP 152/83; PULSE 59; RESP 20; TEMP 98.4; O2SAT 99
--- NOTE | 2016-09-21 08:48 | MB ---
cc: DMITRY CUELLAR MD DATE OF CONSULTATION: 09/20/2016 REASON FOR CONSULTATION Abnormal C-spine MRI and weakness. HISTORY OF PRESENT ILLNESS A 56-year-old -[place] male presents to the emergency department of [facility] for admission. He was seen the day before at the [facility]. He left AMA to work on some personal matters and has come back. He has complaints of pain that started Tuesday in the lower back mainly to the left lower back and weakness in both legs mainly in the left lower extremity that has been progressively worsening. He describes a dull pain in both lower extremities, sometimes down to the feet. Denies tingling and numbness, but states there is mild weakness on the left leg with some limping when he walks. He denies sphincter control disturbances. He denies any symptoms of the upper extremities. He denies headache, double vision, blurred vision, dizzy spells, incoordination, difficulty in speech or difficulty in swallowing. He denies history of trauma to the back. 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 He denies any history of tick bites, contact with animals or rashes. CT of the abdomen and pelvis showed an adrenal adenoma with multiple hepatic lesions, likely representing cysts or hemangiomas without enhancement. MRI of the C-spine without contrast revealed T2 prolongation in the anterior traction of the lower cervical cord, cannot exclude myelopathy, no evidence of disc bulge or protrusion. A thoracic spine MRI without contrast with no gross abnormality seen. A lumbar MRI without contrast revealed central disc protrusion L6/S1 with associated annular tear contained within the epidural fat and without extension into the neural foramina or neural impingement. REVIEW OF SYSTEMS A 12-point review of systems is negative except for what is stated in the HPI. PAST MEDICAL HISTORY Hypertension. PAST SURGICAL HISTORY 1. Hernia repair. 2. Lymph node biopsy. ALLERGIES No known allergies. MEDICATIONS Hydrochlorothiazide. FAMILY HISTORY Both parents are alive. Mother has valve disease. SOCIAL HISTORY Lives alone. Smokes one-half pack per day. Denies ethanol or recreational drug abuse. PHYSICAL EXAMINATION GENERAL: Awake, alert, oriented, good historian, pleasant, mild distress because of the pain. HEENT: Atraumatic, normocephalic. Intact vision. Intact hearing. CARDIOVASCULAR: Normal sinus rhythm. No murmurs. LUNGS: Respiration clear to auscultation. No wheezes. EXTREMITIES: Moves upper and lower extremities. No clubbing, cyanosis or edema. NEUROLOGIC: Awake, alert and oriented to time, person and place. Intact speech. Intact speech content. Cranial nerves are grossly intact II-XII. Motor strength 5/5 bilateral upper extremities. Left lower extremity left hip flexion/hip extension and knee extension 4+/5 with give-way due to pain. Right lower extremity 5/5 of all muscle groups tested. No abnormal movements. No abnormal tone. No sensory level. Intact sensation to superficial touch and temperature bilateral and symmetrical. Reflexes 3+ bilateral upper extremities. Negative Miguel. No clonus. Bilateral 3+ lower extremities with crossed adductor reflex. No clonus. Plantars are bilaterally downgoing. Cerebellar function [id number], [id number] are intact bilateral and symmetrical. Stance and gait intact stance drags the left lower extremity due to pain. Tenderness over the left lower back vertebral column and hip bone. DIAGNOSTIC IMAGING - Head CT scan without contrast negative. - Cervical spine MRI without contrast suggests T2 prolongation of the anterior traction of the lower cervical cord, cannot exclude myelopathy, no evidence of disc bulge or protrusion. - Thoracic spine MRI without contrast with no gross abnormality seen. - Lumbar spine MRI without contrast revealed central disc protrusion at L6/S1 with associated annular tear content with epidural fat and without extension into the neural foramina or neural impingement. - CT abdomen and pelvis with IV contrast revealed multiple hepatic lesions likely representing cysts are hemangiomas. They do not appear to demonstrate significant enhancement. 1.3 cm left adrenal mass which likely represents an adenoma. DIAGNOSTIC IMPRESSION 1. Myelopathy. Given the clinic findings in the bilateral upper extremities and lower extremities of hyperreflexia, weakness and left lower extremity weakness and the clear evidence of an abnormal finding on the cervical spine MRI and the lumbar spine MRI, will want to rule out an infectious process. 2. LP for chemistry, cytology,opening pressure. 3. Brain MRI to rule out a central lesion of demyelination. 4. May consider cervical spine MRI with contrast. 5. PT, OT recommendations are appreciated. 6. DVT prophylaxis with SCD. 7. Fall precautions. 8. GI prophylaxis. Thank you for the opportunity to participate in the care of your patient. MD YNES Caba /7:42 PM /8:25 AM LEO
[2016-09-21] MEDS: SODIUM CHLORIDE 0.9% FLUSH 5 ML FLUSH FLUSH SCH ×2 (09:00→21:19)
[2016-09-21] MEDS: MORPHINE SULFATE 30 MG CONTROLLED RELEASE TAB PO SCH ×2 (09:50→21:18)
[2016-09-21] MEDS: MULTIVITAMIN TAB PO SCH (09:50)
[2016-09-21] MEDS: DOCUSATE SODIUM 100 MG CAP PO SCH ×2 (09:50→21:17)
[2016-09-21 11:26] LABS: APTT (PATIENT) 27.7 SEC (24.3-30.1); PROTHROMBIN TIME - PATIENT 10.9 SEC (9.8-11.6)
[2016-09-21 12:00] VITALS: BP 182/87; PULSE 58; RESP 20; TEMP 97.9; O2SAT 100
[2016-09-21] MEDS ORDERED: LORazepam 2 MG TAB PO SCH (13:00)
--- NOTE | 2016-09-21 13:55 | HHI.PR ---
Objective Vital Signs Date Time Temp Pulse Resp B/P Pulse Ox O2 Delivery O2 Flow Rate FiO2 09/21/16 08:00 98.4 59 20 152/83 99 09/21/16 04:00 96.9 67 17 137/82 98 09/21/16 00:00 96.5 68 16 149/83 99 09/20/16 17:50 99.4 66 18 160/86 99 I/O 09/20/16 09/20/16 09/20/16 09/21/16 09/21/16 09/21/16 07:00 15:00 23:00 07:00 15:00 23:00 Intake Total 240 ml 0 ml Balance 240 ml 0 ml Intake Oral 240 ml 0 ml # Voids 1 1 # Bowel Movements 0 0 Result Diagram: 09/21/16 0551 09/21/16 0551 Assessment and Plan Discussed Condition With came to see patient not in rrom gone for testing/MRI will reattempt tomorrow Meggan Velasquez MD Sep 21, 2016 13:55
--- NOTE | 2016-09-21 15:10 | PD.RAD ---
Post Procedure Progress Note Pre Procedure Diagnosis: (1) Myelopathy Post Procedure Diagnosis: (1) Myelopathy Procedure Date: Sep 21, 2016 Supervising Radiologist: Danial Basurto Proceduralist/Assist: Lucie Velásquez RT(R), Yamini Coleman RT(R)(CV) Anesthesia: Local Plan of Activity Patient to Unit: Nursing Unit Patient Condition: Good See PACS Report for procedural detail/treatment Spinal Procedure Lumbar Puncture L3-L4 Fluid Removal (CCs): 15 (opening pressure 15) Fluid Description: Danial Alcantar MD Sep 21, 2016 15:10
[2016-09-21 15:19] LABS: GROSS BLOOD TUBE #1 0 (0); GROSS BLOOD TUBE #2 0 (0); SUPERNATE COLOR TUBE #1 CLEAR (CLEAR); SUPERNATE COLOR TUBE #2 CLEAR (CLEAR); VOLUME TUBE # 1 2.8 ML; VOLUME TUBE # 2 2.8 ML
[2016-09-21 15:20] LABS: CSF LYMPHOCYTES 86 %; CSF MONOCYTES 3 %; CSF NEUTROPHILS 9 %; GROSS BLOOD TUBE #3 0 (0); GROSS BLOOD TUBE #4 0 (0); SUPERNATE COLOR TUBE #3 CLEAR (CLEAR); SUPERNATE COLOR TUBE #4 CLEAR (CLEAR); VOLUME TUBE # 3 4.2 ML; VOLUME TUBE # 4 6.5 ML; WBC TUBE #2 19 /MM3 (0-10)
[2016-09-21 16:00] VITALS: BP 165/86; PULSE 56; RESP 20; TEMP 99.2; O2SAT 96
--- NOTE | 2016-09-21 16:10 | RADRPT ---
EXAM DATE/TIME: 09/21/2016 13:48 [place] COMPARISON: No previous studies available for comparison. INDICATIONS : Patient with weakness and pain in the bilateral lower extremities. MEDICAL HISTORY : HTN Lymphadenopathy Weight loss of unclear reason SURGICAL HISTORY : Bilateral inguinal hernia repair Biopsy lymph node in left leslie for suspected hernia ENCOUNTER: Initial ACUITY: 1 day PAIN SCORE: 0/10 LUMBAR PUNCTURE TIME: 1400 hours FLUORO TIME: 1.0 minutes ACCESS LEVEL: L3-4 OPENING PRESSURE: 15 cm of water Not requested. FLUID: 17 cc of clear CSF was collected and sent to the laboratory for analysis. PROCEDURE : 1. Fluoroscopic guided lumbar puncture. 2. Recording of opening pressure. The risks, benefits and alternatives to the procedure were explained and verbal and written consent w as obtained. The site was prepped in sterile fashion. Full sterile technique was used, including ca p, mask, sterile gloves and gown and a large sterile sheet. Hand hygiene and 2% chlorhexidine and/or betadine/alcohol prep was utilized per protocol for cutaneous antisepsis. The skin and subcutaneous tissues were infiltrated with local anesthetic solution. With fluoroscopic guidance the lumbar thecal sac was punctured at the above level described above and the opening pressure was recorded. The above described fluid was removed without difficulty. The patient tolerated the procedure well and there were no complications. CONCLUSION: Uncomplicated fluoroscopically guided lumbar puncture with pressures as above. Danial Basurto MD on September 21, 2016 at 16:08 Board Certified Radiologist. This report was verified electronically.
--- NOTE | 2016-09-21 16:32 | HHI.PR ---
Subjective Interval History Alert, oriented, denies any symptoms at rest, has some occasional left groin pain Vitals/Results Intake & Output 09/20/16 09/20/16 09/21/16 15:00 23:00 07:00 Intake Total 240 ml 0 ml Balance 240 ml 0 ml Intake Oral 240 ml 0 ml # Voids 1 1 # Bowel Movements 0 0 Vital Signs Vital Signs Date Time Temp Pulse Resp B/P Pulse Ox O2 Delivery O2 Flow Rate FiO2 09/21/16 12:00 97.9 58 20 182/87 100 09/21/16 08:00 98.4 59 20 152/83 99 09/21/16 04:00 96.9 67 17 137/82 98 09/21/16 00:00 96.5 68 16 149/83 99 09/20/16 17:50 99.4 66 18 160/86 99 CBC/BMP: 09/21/16 0551 09/21/16 0551 Lab Results Laboratory Tests Test 09/20/16 09/21/16 09/21/16 09/21/16 21:05 05:51 10:55 14:00 Erythrocyte Sedimentation Rate 28 mm/hr C-Reactive Protein 0.90 MG/DL Vitamin B12 Level 362 PG/ML Thyroid Stimulating Hormone 0.131 uIU/ML 3rd Gen White Blood Count 1.9 TH/MM3 Red Blood Count 4.12 MIL/MM3 Hemoglobin 12.0 GM/DL Hematocrit 36.0 % Mean Corpuscular Volume 87.2 FL Mean Corpuscular Hemoglobin 29.1 PG Mean Corpuscular Hemoglobin 33.3 % Concent Red Cell Distribution Width 13.1 % Platelet Count 200 TH/MM3 Mean Platelet Volume 10.5 FL Neutrophils (%) (Auto) 48.9 % Lymphocytes (%) (Auto) 28.9 % Monocytes (%) (Auto) 21.1 % Eosinophils (%) (Auto) 0.1 % Basophils (%) (Auto) 1.0 % Neutrophils # (Auto) 0.9 TH/MM3 Lymphocytes # (Auto) 0.5 TH/MM3 Monocytes # (Auto) 0.4 TH/MM3 Eosinophils # (Auto) 0.0 TH/MM3 Basophils # (Auto) 0.0 TH/MM3 CBC Comment AUTO DIFF Differential Total Cells 100 Counted Neutrophils % (Manual) 60 % Lymphocytes % 21 % Monocytes % 17 % Basophils % 2 % Neutrophils # (Manual) 1.1 TH/MM3 Differential Comment FINAL DIFF MANUAL Platelet Estimate NORMAL Platelet Morphology Comment ENLARGED Sodium Level 140 MEQ/L Potassium Level 4.0 MEQ/L Chloride Level 107 MEQ/L Carbon Dioxide Level 27.3 MEQ/L Anion Gap 6 MEQ/L Blood Urea Nitrogen 15 MG/DL Creatinine 0.93 MG/DL Estimat Glomerular Filtration 103 ML/MIN Rate Random Glucose 111 MG/DL Calcium Level 8.7 MG/DL Prothrombin Time 10.9 SEC Prothromb Time International 1.0 RATIO Ratio Activated Partial 27.7 SEC Thromboplast Time CSF Volume (Tube 1) 2.8 ML CSF Supernatant Color (tube 1) CLEAR CSF Gross Blood (Tube 1) 0 CSF Volume (Tube 2) 2.8 ML CSF Supernatant Color (tube 2) CLEAR CSF Gross Blood (Tube 2) 0 CSF WBC (Tube 2) 19 /MM3 CSF RBC (Tube 2) 0 /MM3 CSF Volume (Tube 3) 4.2 ML CSF Supernatant Color (tube 3) CLEAR CSF Gross Blood (Tube 3) 0 CSF Volume (Tube 4) 6.5 ML CSF Supernatant Color (tube 4) CLEAR CSF Gross Blood (Tube 4) 0 CSF Neutrophils 9 % CSF Lymphocytes 86 % CSF Monocytes 3 % CSF Histiocytes 2 % CSF Glucose 56 MG/DL CSF Total Protein 46.3 MG/DL Microbiology Microbiology 09/20/16 Aerobic Blood Culture - Preliminary, Resulted NO GROWTH IN 1 DAY 09/20/16 Anaerobic Blood Culture - Preliminary, Resulted NO GROWTH IN 1 DAY 09/20/16 Aerobic Blood Culture - Preliminary, Resulted NO GROWTH IN 1 DAY 09/20/16 Anaerobic Blood Culture - Preliminary, Resulted NO GROWTH IN 1 DAY 09/21/16 Gram Stain - Final, Resulted 09/21/16 CSF Culture, Resulted Pending 09/21/16 Acid Fast Stain, Received Pending 09/21/16 Mycobacterial Culture, Received Pending 09/21/16 Fungal Smear, Received Pending 09/21/16 Fungal Culture, Received Pending Physical Exam General General Appearance: Well Developed, Comfortable Eyes Eye Exam: Pupils Reactive Ears & Nose Ears & Nose Exam: Nasal Mucosa Maloy Throat Throat Exam: Oral Mucosa Maloy & Moist Neck Neck Exam: Trachea Midline Pulmonary Resp Exam: Breath Sounds Equal, No Distress Cardiology CV Exam: Normal Sinus Rhythm, Good Perfusion Gastrointestinal/Abdomen GI Exam: Non-Tender, Bowel Sounds Present Hematologic/Lymphatic Heme Remarks Very small left groin tender lymphadenopathy Musculoskeletal MS Exam: Normal Tone Integumentary Skin Exam: Warm, Dry Extremeties Extremities Exam: No Edema, Pedal Pulses Palpable Neurologic Neuro Exam: Alert, Awake, Oriented, Speech Clear, Moving All Extremities, Event Sales Manager Equal, No Focal Deficits VTE Prophylaxis VTE Prophylaxis Device: SCDs Assessment/Plan Assessment/Plan Assessment Lower extremity weakness. Status post lumbar puncture 09/21/16 Lymphadenopathy. Question myelopathy Poorly controlled hypertension. Left groin pain Previously positive Q fever serology, significance unclear. Leukopenia. Management. Neurosurgery consult noted and appreciated Infectious disease consultation Neurology consult Pain control Follow CBC DVT prophylaxis. Continue home medications. Discussed with patient. Alan Lema MD Sep 21, 2016 16:31
--- NOTE | 2016-09-21 16:35 | OTSOAPIP ---
TIME SESSION COMPLETED: 1500 TREATMENT TIME: 0 MINS. CHART REVIEWED. ATTEMPTED TO SEE PATIENT FOR INITIAL EVALUATION X2, ONCE PT OFF FLOOR FOR PROCEDURE. RETURNED FOR SECOND ATTEMPT AND PT ON BED REST X2 HOURS. WILL FOLLOW NEXT DAY. AC. Therapist: JUANCARLOS RAVI OT/L Signature on file
--- NOTE | 2016-09-21 17:00 | PD.ID.CON ---
History of Present Illness Service ID Consult Requested By Dr. Mora Reason for Consult Evaluation and Mment of Possible Meningoencephalitis. Primary Care Physician Ez Lino, Diagnoses: History of Present Illness is a 56-y/o AAM presents to the ED at [facility] for admission. He was seen the day before at the [facility] and underwent workup in form of MRI of entire spine. Due to abnormal findings on imaging and abnormal Clinical exam patient was asked to come to ED but he left AMA to work on some personal matters and has come back. He has complaints of pain that started Tuesday in the lower back mainly to the left lower back and weakness in both legs mainly in the left lower extremity that has been progressively worsening. He describes a dull pain in both lower extremities, sometimes down to the feet. Denies tingling and numbness, but states there is mild weakness on the left leg with some limping when he walks. He reports he has followed with urology and Gen Surgery Dr.Mark Lagos and has been told the groin discomfort and pain is due to likely fibrosis. He denies sphincter control disturbances. He denies any symptoms of the upper extremities. He denies headache, double vision, blurred vision, dizzy spells, incoordination , difficulty in speech or difficulty in swallowing. He denies history of trauma to the back. 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 He denies any history of tick bites,contact with animals or rashes. He thinks he was tested for HIV and Hepatitis but is ok with me testing again. He denies any new sexual partners. He says he is unable to perform due to groin pain. He denies any discharge from urethra or joint pains. He denies being treated for any STDs such as GC, Chlamydia or LGV. Further workup at [facility] shows a CT of the abdomen and pelvis showed an adrenal adenoma with multiple hepatic lesions, likely representing cysts or hemangiomas without enhancement. MRI of the C-spine without contrast revealed T2 prolongation in the anterior traction of the lower cervical cord, cannot exclude myelopathy, no evidence of disc bulge or protrusion. A thoracic spine MRI without contrast with no gross abnormality seen. A lumbar MRI without contrast revealed central disc protrusion L6/S1 with associated annular tear contained within the epidural fat and without extension into the neural foramina or neural impingement. Patient was seen by Neurologist and an LP was ordered. He was also s/b neurosurgery with no surgical interventions planned. LP shows WBC 19, with lymphocyte predominance and total protein mildly elevated at 46. This is not c/w acute bacterial meningitis although other viral etc etiologies need to be excluded. His WBC in serum is only 1.9, with normal platelets and some degree of anemia. ID is consulted to evaluate and manage possible meningoencephalitis as cause for neuro deficits. Review of Systems ROS Limitations: Poor Historian Constitutional: COMPLAINS OF: Weight loss, DENIES: Diaphoretic episodes, Fatigue, Fever, Weight gain, Chills, Dizziness, Change in appetite, Night Sweats Endocrine: DENIES: Heat/cold intolerance, Polydipsia, Polyuria, Polyphagia Eyes: DENIES: Blurred vision, Diplopia, Eye inflammation, Eye pain, Vision loss , Photosensitivity, Double Vision Ears, nose, mouth, throat: DENIES: Tinnitus, Hearing loss, Vertigo, Nasal discharge, Oral lesions, Throat pain, Hoarseness, Ear Pain, Running Nose, Epistaxis, Sinus Pain, Toothache, Odynophagia Respiratory: DENIES: Apneas, Cough, Snoring, Wheezing, Hemoptysis, Sputum production, Shortness of breath Cardiovascular: DENIES: Chest pain, Palpitations, Syncope, Dyspnea on Exertion , PND, Lower Extremity Edema, Orthopnea, Claudication Gastrointestinal: DENIES: Abdominal pain, Black stools, Bloody stools, Constipation, Diarrhea, Nausea, Vomiting, Difficulty Swallowing, Anorexia Genitourinary: COMPLAINS OF: Urinary frequency, Urinary incontinence, Urgency, Hematuria, Dysuria, Nocturia, Penile Discharge, Testicular Pain, Testicular Swelling, DENIES: Sexual dysfunction (due to pain in groin) Musculoskeletal: COMPLAINS OF: Back pain, Neck pain (left side of neck), DENIES: Joint pain, Muscle aches, Stiffness, Joint Swelling Integumentary: DENIES: Abnormal pigmentation, Nail changes, Pruritus, Rash Hematologic/lymphatic: DENIES: Bruising, Lymphadenopathy Immunologic/allergic: DENIES: Eczema, Urticaria Neurologic: COMPLAINS OF: Abnormal gait, Localized weakness, Poor Balance, DENIES: Headache, Paresthesias, Seizures, Speech Problems, Tremor Psychiatric: DENIES: Anxiety, Confusion, Mood changes, Depression, Hallucinations, Agitation, Suicidal Ideation, Homicidal Ideation, Delusions Past Family Social History Allergies: Coded Allergies: No Known Allergies (Verified , 09/19/16) Past Medical History Hypertension. Past Surgical History 1. Hernia repair. 2. Lymph node biopsy. Reported Medications Reported Meds & Active Scripts Active Reported Hydrochlorothiazide 12.5 Mg Cap 12.5 Mg PO DAILY Active Ordered Medications Current Medications Medications (Trade) Dose Ordered Sig/Sherice Route Start Time Stop Time Status Last Admin (08/23 NS 1000 ml Inj) 1,000 ml @ 75 mls/hr [id number] IV 09/20/16 15:00 09/21/16 04:53 (NS Flush) 2 ml UNSCH PRN FLUSH 09/20/16 14:30 (NS Flush) 2 ml BID FLUSH 09/20/16 21:00 09/20/16 22:08 (Zofran Inj) 4 mg Q6H PRN IVP 09/20/16 14:30 (Narcan Inj) 0.4 mg UNSCH PRN IV 09/20/16 14:30 (Zanaflex) 4 mg Q12H PO 09/20/16 18:45 09/21/16 18:38 (Oramorph Sr) 30 mg Q12HR PO 09/20/16 21:00 09/21/16 09:50 (Colace) 100 mg BID PO 09/20/16 21:00 09/21/16 09:50 (Theragran) 1 tab DAILY PO 09/21/16 09:00 09/21/16 09:50 (Procardia Xl) 60 mg DAILY PO 09/21/16 17:00 09/21/16 18:38 Family History reviewed and MI Social History Has several children, . 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 Physical Exam Vital Signs Vital Signs Date Time Temp Pulse Resp B/P Pulse Ox O2 Delivery O2 Flow Rate FiO2 09/21/16 16:00 99.2 56 20 165/86 96 09/21/16 12:00 97.9 58 20 182/87 100 09/21/16 08:00 98.4 59 20 152/83 99 09/21/16 04:00 96.9 67 17 137/82 98 09/21/16 00:00 96.5 68 16 149/83 99 09/20/16 17:50 99.4 66 18 160/86 99 Physical Exam GENERAL: Thin built, well nourished patient, in no apparent distress. SKIN: No rashes, ecchymoses or lesions. Cool and dry. HEAD: Atraumatic. Normocephalic. No temporal or scalp tenderness. EYES: Pupils equal round and reactive. Extraocular motions intact. No scleral icterus. No injection or drainage. ENT: Nose without bleeding, purulent drainage or septal hematoma. Throat without erythema, tonsillar hypertrophy or exudate. Uvula midline. Airway patent. NECK: Trachea midline. Supple, nontender, no meningeal signs. CARDIOVASCULAR: HS audible. No murmur appreciated. RESPIRATORY: Clear to auscultation. Breath sounds equal bilaterally. No wheezes , rales, or rhonchi. GASTROINTESTINAL: Abdomen soft, non-tender, nondistended. MUSCULOSKELETAL: Extremities without clubbing, cyanosis, or edema. No joint tenderness, effusion, or edema noted. No calf tenderness. Negative Homans sign bilaterally. NEUROLOGICAL: Awake and alert. Left UE 4+/5. LLE power 3 +/5. Inguinal LNs palpable, non tender, shotty LNs. No penile lesions. 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 Laboratory Laboratory Tests Test 09/20/16 09/21/16 09/21/16 09/21/16 21:05 05:51 10:55 14:00 Erythrocyte Sedimentation Rate 28 C-Reactive Protein 0.90 Vitamin B12 Level 362 Thyroid Stimulating Hormone 0.131 3rd Gen White Blood Count 1.9 Red Blood Count 4.12 Hemoglobin 12.0 Hematocrit 36.0 Mean Corpuscular Volume 87.2 Mean Corpuscular Hemoglobin 29.1 Mean Corpuscular Hemoglobin 33.3 Concent Red Cell Distribution Width 13.1 Platelet Count 200 Mean Platelet Volume 10.5 Neutrophils (%) (Auto) 48.9 Lymphocytes (%) (Auto) 28.9 Monocytes (%) (Auto) 21.1 Eosinophils (%) (Auto) 0.1 Basophils (%) (Auto) 1.0 Neutrophils # (Auto) 0.9 Lymphocytes # (Auto) 0.5 Monocytes # (Auto) 0.4 Eosinophils # (Auto) 0.0 Basophils # (Auto) 0.0 CBC Comment AUTO DIFF Differential Total Cells 100 Counted Neutrophils % (Manual) 60 Lymphocytes % 21 Monocytes % 17 Basophils % 2 Neutrophils # (Manual) 1.1 Differential Comment FINAL DIFF MANUAL Platelet Estimate NORMAL Platelet Morphology Comment ENLARGED Sodium Level 140 Potassium Level 4.0 Chloride Level 107 Carbon Dioxide Level 27.3 Anion Gap 6 Blood Urea Nitrogen 15 Creatinine 0.93 Estimat Glomerular Filtration 103 Rate Random Glucose 111 Calcium Level 8.7 Prothrombin Time 10.9 Prothromb Time International 1.0 Ratio Activated Partial 27.7 Thromboplast Time CSF Volume (Tube 1) 2.8 CSF Supernatant Color (tube 1) CLEAR CSF Gross Blood (Tube 1) 0 CSF Volume (Tube 2) 2.8 CSF Supernatant Color (tube 2) CLEAR CSF Gross Blood (Tube 2) 0 CSF WBC (Tube 2) 19 CSF RBC (Tube 2) 0 CSF Volume (Tube 3) 4.2 CSF Supernatant Color (tube 3) CLEAR CSF Gross Blood (Tube 3) 0 CSF Volume (Tube 4) 6.5 CSF Supernatant Color (tube 4) CLEAR CSF Gross Blood (Tube 4) 0 CSF Neutrophils 9 CSF Lymphocytes 86 CSF Monocytes 3 CSF Histiocytes 2 CSF Glucose 56 CSF Total Protein 46.3 Date/Time Procedure Status Source Growth 09/21/16 14:00 Gram Stain - Final Resulted Cerebral Spinal Fluid Lumbar Puncture 09/21/16 14:00 CSF Culture Resulted Cerebral Spinal Fluid Lumbar Puncture Pending 09/21/16 14:00 Fungal Smear Received Cerebral Spinal Fluid Lumbar Puncture Pending 09/21/16 14:00 Fungal Culture Received Cerebral Spinal Fluid Lumbar Puncture Pending 09/21/16 14:00 Acid Fast Stain Received Cerebral Spinal Fluid Lumbar Puncture Pending 09/21/16 14:00 Mycobacterial Culture Received Cerebral Spinal Fluid Lumbar Puncture Pending 09/20/16 21:05 Aerobic Blood Culture - Preliminary Resulted Blood Peripheral NO GROWTH IN 1 DAY 09/20/16 21:05 Anaerobic Blood Culture - Preliminary Resulted Blood Peripheral NO GROWTH IN 1 DAY Result Diagram: 09/21/16 0551 09/21/16 0551 Imaging Last Impressions Lumbar Puncture Fluoroscopy 09/21/16 0000 Signed Impressions: Service Date/Time: Wednesday, September 21, 2016 13:48 - CONCLUSION: Uncomplicated fluoroscopically guided lumbar puncture with pressures as above. Danial Basurto MD Chest CT 09/21/16 0000 Signed Impressions: Service Date/Time: Wednesday, September 21, 2016 17:52 - CONCLUSION: No abnormality is seen in the chest. Hypodensities are seen in the liver likely related to cysts. Ez Odell MD Abdomen Ultrasound 09/21/16 0000 Signed Impressions: Service Date/Time: Wednesday, September 21, 2016 16:47 - CONCLUSION: No acute disease. Hepatic cysts are seen. Ez Odell MD Assessment and Plan Assessment and Plan Possible viral encephomyelitis. Lymphadenitis Severe Leucopenia with normal platelets. Inguinal hernia s/p surgery and lymph node biopsy and ? removal. Left LE weakness ? related to pain Recs Check LFTs Check HIV and Hepatitis profile Check HIV DNA PCR to r/o acute retroviral syndrome. CSF HSV PCR CSF HANSEL virus CSF VDRL Follow CSF cultures Follow cultures Follow clinically. May consider LN biopsy this time with stains in path to rule out infectious etiologies such as LGV, gumma. etc. Check RPR Check crypto in CSF. dw patient and son in room. Critical thinking and decision making. Flor Jalloh MD Sep 21, 2016 17:00
--- NOTE | 2016-09-21 17:32 | MB ---
cc: HAILEE LEA M.D. DATE OF CONSULTATION: 09/21/2016 ATTENDING PHYSICIAN: Dr. Grisel Lema. REASON FOR CONSULTATION: Oncology consult render opinion regarding patient with leukopenia and abnormal cervical spine MRI. HISTORY OF PRESENT ILLNESS The patient is a 56-year-old male presented with complaint of bilateral lower extremity weakness. He stated he had a inguinal hernia repair a year ago. He was later found to have enlarged lymph node and had a biopsy which showed granulomatous lymphadenitis Since then he has been having pain in the groin and lower extremities around Tuesday evening he started experiencing increased lower extremity weakness and pain. He also had a tingling and numbness. He had difficulty walking. He came to emergency room. He denies any fever or chills, he has lost about 4 pounds, he has decreased appetite. He denies significant night sweats. He has no chest pain, palpitation, shortness of breath or cough and nausea, vomiting, diarrhea or abdominal pain, he has bowel or urinary incontinence. PAST MEDICAL HISTORY 1. Hypertension 2. Lymphadenopathy 3. Left inguinal granulomatous lymphadenitis PAST SURGICAL HISTORY 1. Right inguinal hernia repair. 2. Biopsy left inguinal lymph node. FAMILY HISTORY Two sisters healthy. Has a son and two daughters. SOCIAL HISTORY Has smoked half pack a day, he drinks occasionally. ALLERGIES NO KNOWN DRUG ALLERGIES MEDICATIONS Hydrochlorothiazide. REVIEW OF SYSTEMS CONSTITUTIONAL: He has lost about four pounds, he has increased weakness, HEAD, EYES, EARS, NOSE, AND THROAT: Eyes: Denies any blurry vision, double vision. ENT: Denies mouth sore voice changes. C CARDIOVASCULAR: Chest pressure, palpitation RESPIRATORY: Denies any shortness of breath or cough. GASTROINTESTINAL: Denies any nausea, vomiting, abdominal pain. GENITOURINARY: Denies any dysuria or hematuria. MUSCULOSKELETAL: As above. HEMATOLOGIC: negative. ENDOCRINE: Negative. DERMATOLOGY: negative. PSYCHIATRIC: Negative. NEUROLOGIC: As above. PHYSICAL EXAMINATION VITAL SIGNS: Temperature 99.2, blood pressure 65, 86, O2 saturation 96%. GENERAL: He is alert and x3 in no acute distress. HEAD, EYES, EARS, NOSE, AND THROAT: Atraumatic, cephalic. Pupils equal, round and light. Extraocular muscle intact. No sclerae icterus. Oropharynx moist mucosa. No lesion or thrush or mucositis. NECK: No thyromegaly. No palpable masses. LYMPHATICS: No palpable cervical, clavicular, axillary lymph node CARDIOVASCULAR SYSTEM: Regular S1-S2 normal. LUNGS: Clear to auscultation without wheezing or rhonchi. ABDOMEN: Soft, nontender. There is soreness in the groin area. There is shotty lymph node in the inguinal area. BACK: No paravertebral tenderness. SKIN: No rash or petechiae. NEUROLOGIC: Exam is clear. He is moving all four extremities. LABORATORY DATA: Reviewed. ASSESSMENT 1. Bilateral lower extremity weakness and paresthesias. MRI of the cervical spine showed abnormal signal in lower cervical cord, suspicious for myelopathy. MRI lumbar spine, thoracic spine did not show any other lesion. He had CT of the abdomen and pelvis done outpatient on September 18 which showed only 1.5 cm left adrenal lesion consistent with adenoma and no significant adenopathy. He is awaiting MRI of the brain to see if there is any other lesion. He has no obvious malignancy noted at this time I am going to have him get a CT of the chest to see if there is any other lesion. 2. Leukopenia with mild neutropenia. He is not anemic and his platelet count is normal. This could be due to a transient marrow suppression especially if he has viral infection. Continue to monitor CBC for now, we will check for vitamin deficiency as well. 3. History of granulomatous lymphadenitis. He had a biopsy left inguinal lymph node in 2014. I did not palpate significant adenopathy on exam. Recent CT abdomen and pelvis also did not show any significant adenopathy. 4. Hypertension. RECOMMENDATIONS 1. Await brain MRI and further neurologic workup. 2. Get a CT of the chest. 3. Monitor CBC. 4. Check a tumor marker. Thank you Dr. Lema for asking me to see this patient. MD SALOME Vinson/hiwot /4:55 PM /5:09 PM LEO
[2016-09-21] MEDS ORDERED: IOHEXOL 350 MG/ML 10 ML VIAL (for RAD DIAG) IV ONE (17:58)
[2016-09-21] MEDS: NIFEdipine 60 MG SUSTAINED RELEASE TAB PO SCH (18:38)
--- NOTE | 2016-09-21 18:47 | RADRPT ---
EXAM DATE/TIME: 09/21/2016 16:47 [facility] COMPARISON: No previous studies available for comparison. EXTERNAL COMPARISON : [facility], CT ABDOMEN AND PELVIS W/ CONTRAST, September 10, 2016[facility], CT ABDOME N & PELVIS W CONTRAST, October 18, 2014. INDICATIONS : Abdominal pain. MEDICAL HISTORY : Hypertension. Back pain. Weakness. SURGICAL HISTORY : Bilateral inguinal hernia repair. ENCOUNTER: Initial ACUITY: 1 day PAIN SCORE: 5/10 LOCATION: Abdomen. MEASUREMENTS: LIVER: 17.0 cm length COMMON DUCT: 4 mm RIGHT KIDNEY: 11.8 x 5.4 x 4.8 cm LEFT KIDNEY: 12.0 x 5.3 x 6.0 cm SPLEEN: 9.7 cm length AORTA: 2.7 cm maximal FINDINGS: LIVER: The liver chest is normal echogenicity. There are several cysts seen measuring up to 2.3 cm.. COMMON DUCT: No intraluminal mass or stone visualized. GALLBLADDER: Contains no stones, demonstrates no wall thickening or pericholecystic fluid. PANCREAS: The visualized portions are within normal limits. RIGHT KIDNEY: No hydronephrosis, stone or mass. LEFT KIDNEY: No hydronephrosis, stone or mass. SPLEEN: No focal lesion. AORTA: Non aneurysmal. IVC: Within normal limits. CONCLUSION: No acute disease. Hepatic cysts are seen. Ez Odell MD on September 21, 2016 at 18:44 Board Certified Radiologist. This report was verified electronically.
--- NOTE | 2016-09-21 18:49 | RADRPT ---
EXAM DATE/TIME: 09/21/2016 17:52 [facility] COMPARISON: No previous studies available for comparison. INDICATIONS : Evaluate for neoplasm. IV CONTRAST: 70 cc Omnipaque 350 (iohexol) IV RADIATION DOSE: 7.07 CTDIvol (mGy) MEDICAL HISTORY : Cardiovascular disease. Hypertension. Leukopenia SURGICAL HISTORY : Inguinal hernia repair. ENCOUNTER: Initial ACUITY: 1 day PAIN SCALE: 0/10 LOCATION: chest TECHNIQUE: Volumetric scanning of the chest was performed. Using automated exposure control and adjustment of t he mA and/or kV according to patient size, radiation dose was kept as low as reasonably achievable to obtain optimal diagnostic quality images. FINDINGS: LUNGS: There is no consolidation or pneumothorax. No concerning pulmonary nodule is visualized. PLEURA: There is no pleural thickening or pleural effusion. MEDIASTINUM: The heart and great vessels demonstrate no acute abnormality. There is no mediastinal or hilar lymph adenopathy. AXILLAE: Within normal limits. No lymphadenopathy. SKELETAL: Within normal limits for patient age. MISCELLANEOUS: The visualized upper abdominal organs demonstrate no acute abnormality. Several hypodensities are see n in the liver thought to represent cysts. CONCLUSION: No abnormality is seen in the chest. Hypodensities are seen in the liver likely related to cysts. Ez Odell MD on September 21, 2016 at 18:46 Board Certified Radiologist. This report was verified electronically.
[2016-09-21 19:00] VITALS: BP 124/71; PULSE 64; RESP 18; TEMP 99.1; O2SAT 98
[2016-09-22 04:00] VITALS: BP 123/65; PULSE 91; RESP 16; TEMP 99.7; O2SAT 99
[2016-09-22] MEDS: MORPHINE SULFATE 4 MG/ML INJ IV PRN ×2 (05:37→17:09)
[2016-09-22] MEDS: ONDANSETRON HCL 4 MG/2 ML VIAL IVP PRN (05:40)
[2016-09-22] MEDS: SODIUM CHLOR 0.45% 1000 ML INJ 1,000 ML IV SCH (05:44)
[2016-09-22 08:00] VITALS: BP 108/57; PULSE 81; RESP 18; TEMP 99.8; O2SAT 97
--- NOTE | 2016-09-22 09:02 | RADRPT ---
EXAM DATE/TIME: 09/22/2016 08:10 [facility] COMPARISON: No previous studies available for comparison. INDICATIONS : Bilateral lower extremity weakness. CONTRAST: 13 cc Omniscan (gadodiamide) IV MEDICAL HISTORY : Hypertension. SURGICAL HISTORY : Inguinal hernia repair. ENCOUNTER: Initial ACUITY: 3 day PAIN SCORE: 0/10 LOCATION: head. TECHNIQUE: Multiplanar, multisequence MRI of the brain was performed both prior to and following the administrat ion of paramagnetic contrast. FINDINGS: CEREBRUM: The ventricles are normal for age. No evidence of midline shift, mass lesion, hemorrhage or acute in farction. No extraaxial fluid collections are seen. The pituitary gland and suprasellar cistern are normal in configuration. WHITE MATTER: Mild signal abnormalities are seen in the white matter. POSTERIOR FOSSA: The cerebellum and brainstem are intact. The 4th ventricle is midline. The cerebellopontine angle is unremarkable. The cerebellar tonsils are normal in position. DIFFUSION IMAGING: No focal areas of restricted diffusion are seen. No evidence of acute infarction. EXTRACRANIAL: The visualized portions of the orbits and paranasal sinuses are unremarkable. POST-CONTRAST: No abnormal areas of parenchymal or dural enhancement. No evidence of blood-brain barrier breakdown. CONCLUSION: 1. No acute findings. No abnormal enhancement. Minimal signal abnormality in the periventricular whit e matter most characteristic of mild chronic ischemic demyelinization, commonly seen with history of hypertension. Remote tiny lacunar infarct left thalamus. Flex Mae MD on September 22, 2016 at 8:56 Board Certified Radiologist. This report was verified electronically.
[2016-09-22] MEDS ORDERED: GADODIAMIDE PF 287 MG/ML 5 ML VIAL (for RAD MRI) IV ONE (09:45)
[2016-09-22] MEDS: MORPHINE SULFATE 30 MG CONTROLLED RELEASE TAB PO SCH ×2 (09:54→20:39)
[2016-09-22] MEDS: NIFEdipine 60 MG SUSTAINED RELEASE TAB PO SCH (09:54)
[2016-09-22] MEDS: DOCUSATE SODIUM 100 MG CAP PO SCH ×2 (09:54→20:39)
[2016-09-22] MEDS: MULTIVITAMIN TAB PO SCH (09:54)
[2016-09-22] MEDS: SODIUM CHLORIDE 0.9% FLUSH 5 ML FLUSH FLUSH SCH ×2 (09:57→20:40)
[2016-09-22 11:59] VITALS: BP 137/59; PULSE 107; RESP 17; TEMP 98.9; O2SAT 96
--- NOTE | 2016-09-22 13:34 | PD.CONS ---
HPI Service Nephrology Consult Requested By Dr. Lema Reason for Consult Hypertension Primary Care Physician Ez Lino, DO History of Present Illness Patient is a 56-year-old male with history of hypertension of more than 5 years he cannot exactly recall when it was first discovered he has a strong family history of hypertension from maternal side, his blood pressure was 179/91 and currently under control on nifedipine last reading was 137/59. During investigation incidental note was made about left adrenal adenoma however the features appears of adenoma on CT scan. 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 He developed bilateral leg achiness and some weakness for which he was in [place] he left AGAINST MEDICAL ADVICE and then got readmitted. He is complaining of headaches from lumbar puncture done yesterday Review of Systems Constitutional: COMPLAINS OF: Fatigue Musculoskeletal: COMPLAINS OF: Joint pain, Muscle aches, Stiffness Neurologic: COMPLAINS OF: Abnormal gait, Headache, Poor Balance Past Family Social History Allergies: Coded Allergies: No Known Allergies (Verified , 09/19/16) Past Medical History Hypertension Past Surgical History Inguinal hernia repair Lymph node biopsy Reported Medications Reported Meds & Active Scripts Active Reported Hydrochlorothiazide 12.5 Mg Cap 12.5 Mg PO DAILY Active Ordered Medications Current Medications Medications (Trade) Dose Ordered Sig/Sherice Route Start Time Stop Time Status Last Admin (08/23 NS 1000 ml Inj) 1,000 ml @ 75 mls/hr [id number] IV 09/20/16 15:00 09/22/16 05:44 (NS Flush) 2 ml UNSCH PRN FLUSH 09/20/16 14:30 (NS Flush) 2 ml BID FLUSH 09/20/16 21:00 09/22/16 09:57 (Zofran Inj) 4 mg Q6H PRN IVP 09/20/16 14:30 09/22/16 05:40 (Narcan Inj) 0.4 mg UNSCH PRN IV 09/20/16 14:30 (Zanaflex) 4 mg Q12H PO 09/20/16 18:45 09/22/16 09:54 (Oramorph Sr) 30 mg Q12HR PO 09/20/16 21:00 09/22/16 09:54 (Colace) 100 mg BID PO 09/20/16 21:00 09/22/16 09:54 (Theragran) 1 tab DAILY PO 09/21/16 09:00 09/22/16 09:54 (Procardia Xl) 60 mg DAILY PO 09/21/16 17:00 09/22/16 09:54 (Morphine Inj) 4 mg Q3H PRN IV 09/22/16 05:30 09/22/16 05:37 (Milk Of Magnphillip Liq) 30 ml DAILY PRN PO 09/22/16 13:30 Family History Maternal side positive for hypertension Social History He smokes about a pack a day uses alcohol rarely Physical Exam Vital Signs Vital Signs Date Time Temp Pulse Resp B/P Pulse Ox O2 Delivery O2 Flow Rate FiO2 09/22/16 11:59 98.9 107 17 137/59 96 09/22/16 08:00 99.8 81 18 108/57 97 09/22/16 04:00 99.7 91 16 123/65 99 09/21/16 19:00 99.1 64 18 124/71 98 09/21/16 16:00 99.2 56 20 165/86 96 Physical Exam GENERAL: Well-nourished, well-developed patient. SKIN: Warm and dry. HEAD: Normocephalic. EYES: No scleral icterus. No injection or drainage. NECK: Supple, trachea midline. No JVD or lymphadenopathy. CARDIOVASCULAR: Regular rate and rhythm without murmurs, gallops, or rubs. RESPIRATORY: Breath sounds equal bilaterally. No accessory muscle use. GASTROINTESTINAL: Abdomen soft, non-tender, nondistended. EXTREMITIES: No cyanosis, or edema. NEUROLOGICAL: Awake, alert, and oriented x 3. Non-focal. Laboratory Laboratory Tests Test 09/21/16 14:00 CSF Volume (Tube 1) 2.8 CSF Supernatant Color (tube 1) CLEAR CSF Gross Blood (Tube 1) 0 CSF Volume (Tube 2) 2.8 CSF Supernatant Color (tube 2) CLEAR CSF Gross Blood (Tube 2) 0 CSF WBC (Tube 2) 19 CSF RBC (Tube 2) 0 CSF Volume (Tube 3) 4.2 CSF Supernatant Color (tube 3) CLEAR CSF Gross Blood (Tube 3) 0 CSF Volume (Tube 4) 6.5 CSF Supernatant Color (tube 4) CLEAR CSF Gross Blood (Tube 4) 0 CSF Neutrophils 9 CSF Lymphocytes 86 CSF Monocytes 3 CSF Histiocytes 2 CSF Glucose 56 CSF Total Protein 46.3 Date/Time Procedure Status Source Growth 09/21/16 14:00 Gram Stain - Final Resulted Cerebral Spinal Fluid Lumbar Puncture 09/21/16 14:00 CSF Culture - Preliminary Resulted Cerebral Spinal Fluid Lumbar Puncture NO GROWTH IN 24 HOURS. 09/21/16 14:00 Fungal Smear - Final Resulted Cerebral Spinal Fluid Lumbar Puncture NO FUNGAL ELEMENTS SEEN. 09/21/16 14:00 Fungal Culture Resulted Cerebral Spinal Fluid Lumbar Puncture Pending 09/21/16 14:00 Acid Fast Stain - Final Resulted Cerebral Spinal Fluid Lumbar Puncture NO ACID FAST BACILLI SEEN 09/21/16 14:00 Mycobacterial Culture Resulted Cerebral Spinal Fluid Lumbar Puncture Pending 09/20/16 21:05 Aerobic Blood Culture - Preliminary Resulted Blood Peripheral NO GROWTH IN 2 DAYS 09/20/16 21:05 Anaerobic Blood Culture - Preliminary Resulted Blood Peripheral NO GROWTH IN 2 DAYS Result Diagram: 09/21/16 0551 09/21/16 0551 Imaging Last Impressions Brain MRI 09/22/16 0000 Signed Impressions: Service Date/Time: Thursday, September 22, 2016 08:10 - CONCLUSION: 1. No acute findings. No abnormal enhancement. Minimal signal abnormality in the periventricular white matter most characteristic of mild chronic ischemic demyelinization, commonly seen with history of hypertension. Remote tiny lacunar infarct left thalamus. Flex Mae MD Lumbar Puncture Fluoroscopy 09/21/16 0000 Signed Impressions: Service Date/Time: Wednesday, September 21, 2016 13:48 - CONCLUSION: Uncomplicated fluoroscopically guided lumbar puncture with pressures as above. Danial Basurto MD Chest CT 09/21/16 0000 Signed Impressions: Service Date/Time: Wednesday, September 21, 2016 17:52 - CONCLUSION: No abnormality is seen in the chest. Hypodensities are seen in the liver likely related to cysts. Ez Odell MD Abdomen Ultrasound 09/21/16 0000 Signed Impressions: Service Date/Time: Wednesday, September 21, 2016 16:47 - CONCLUSION: No acute disease. Hepatic cysts are seen. Ez Odell MD Assessment and Plan Problem List: (1) HTN (hypertension) Plan: I reviewed the CT scan and it appears left adrenal adenoma is benign- appearing, there is no indication to do further workup his blood pressure is controlled with single agent He also has a strong family history of hypertension. I recommend that at this point we need to observe and in future if his blood pressure is labile then this can be investigated further as an outpatient I will follow on as needed basis (2) Myelopathy Plan: He got a brain MRI and LP was done (3) Granulomatous lymphadenitis Plan: old diagnosis ID is following Meggan Velasquez MD Sep 22, 2016 13:34
--- NOTE | 2016-09-22 15:23 | PD.ONC.PN ---
Subjective Subjective Remarks Tmax 99.8 overnight. Pt resting in bed on approach. He feels tired today and he continues to have weakness and pain in his legs. He mentions he has not had a bowel movement in a few days but also states he hasn't been eating much. Objective Data Date Time Temp Pulse Resp B/P Pulse Ox O2 Delivery O2 Flow Rate FiO2 09/22/16 11:59 98.9 107 17 137/59 96 09/22/16 08:00 99.8 81 18 108/57 97 09/22/16 04:00 99.7 91 16 123/65 99 09/21/16 19:00 99.1 64 18 124/71 98 09/21/16 16:00 99.2 56 20 165/86 96 Result Diagram: 09/21/16 0551 09/21/16 0551 Culture Results Microbiology Date/Time Procedure Status Source Growth 09/20/16 21:00 Aerobic Blood Culture - Preliminary Resulted Blood Peripheral NO GROWTH IN 2 DAYS 09/20/16 21:00 Anaerobic Blood Culture - Preliminary Resulted Blood Peripheral NO GROWTH IN 2 DAYS 09/20/16 21:05 Aerobic Blood Culture - Preliminary Resulted Blood Peripheral NO GROWTH IN 2 DAYS 09/20/16 21:05 Anaerobic Blood Culture - Preliminary Resulted Blood Peripheral NO GROWTH IN 2 DAYS 09/21/16 14:00 Gram Stain - Final Resulted Cerebral Spinal Fluid Lumbar Puncture 09/21/16 14:00 CSF Culture - Preliminary Resulted Cerebral Spinal Fluid Lumbar Puncture NO GROWTH IN 24 HOURS. 09/21/16 14:00 Acid Fast Stain - Final Resulted Cerebral Spinal Fluid Lumbar Puncture NO ACID FAST BACILLI SEEN 09/21/16 14:00 Mycobacterial Culture Resulted Cerebral Spinal Fluid Lumbar Puncture Pending 09/21/16 14:00 Fungal Smear - Final Resulted Cerebral Spinal Fluid Lumbar Puncture NO FUNGAL ELEMENTS SEEN. 09/21/16 14:00 Fungal Culture Resulted Cerebral Spinal Fluid Lumbar Puncture Pending Imaging Studies Last 24 hours Impressions Brain MRI 09/22/16 0000 Signed Impressions: Service Date/Time: Thursday, September 22, 2016 08:10 - CONCLUSION: 1. No acute findings. No abnormal enhancement. Minimal signal abnormality in the periventricular white matter most characteristic of mild chronic ischemic demyelinization, commonly seen with history of hypertension. Remote tiny lacunar infarct left thalamus. Flex Mae MD Administered Medications Medications (Trade) Dose Ordered Sig/Sherice Route PRN Reason Start Time Stop Time Status Last Admin Dose Admin Sodium Chloride (08/23 NS 1000 ml Inj) 1,000 ml @ 75 mls/hr [id number] IV 09/20/16 15:00 09/22/16 05:44 IV Flush (NS Flush) 2 ml BID FLUSH 09/20/16 21:00 09/22/16 09:57 Ondansetron HCl (Zofran Inj) 4 mg Q6H PRN IVP NAUSEA OR VOMITING 09/20/16 14:30 09/22/16 05:40 Tizanidine HCl (Zanaflex) 4 mg Q12H PO 09/20/16 18:45 09/22/16 09:54 Morphine Sulfate (Oramorph Sr) 30 mg Q12HR PO 09/20/16 21:00 09/22/16 09:54 Docusate Sodium (Colace) 100 mg BID PO 09/20/16 21:00 09/22/16 09:54 Multivitamins (Theragran) 1 tab DAILY PO 09/21/16 09:00 09/22/16 09:54 Nifedipine (Procardia Xl) 60 mg DAILY PO 09/21/16 17:00 09/22/16 09:54 Morphine Sulfate (Morphine Inj) 4 mg Q3H PRN IV SEVERE PAIN 09/22/16 05:30 09/22/16 05:37 Objective Remarks GENERAL: Middle aged male lying in bed in no acute distress. SKIN: Warm and dry. HEAD: Normocephalic. EYES: No injection or drainage. NECK: Supple, trachea midline. CARDIOVASCULAR: +S1/S2. No murmur. RESPIRATORY: Breath sounds equal bilaterally. No accessory muscle use. GASTROINTESTINAL: Abdomen soft, non-tender, nondistended. EXTREMITIES: No edema. NEUROLOGICAL: No obvious focal deficit. Moving all extremities. Normal speech. Assessment/Plan Problem List: (1) Leukopenia Status: Acute Plan: --Mild neutropenia --Possibly due to mild marrow suppression. --Monitor CBC (2) Bilateral leg weakness Status: Acute Plan: -- Lumbar puncture on 09/21. Cytology pending. -- MRI cervical spine showed abnormal signal in lower cervical cord; suspicious for myelopathy. -- CT chest, MRI brain negative for other suspicious processes. Assessment 56 y/o male with bilateral lower extremity weakness and paresthesias. Plan 1. Labs pending; monitor CBC 2. Await results of lumbar puncture/cytology. 3. Milk of Magnesia prn for constipation. 4. Supportive care. Attending Statement The exam, history, and the medical decision-making described in the above note were completed with the assistance of the mid-level provider. I reviewed and agree with the findings presented. I attest that I had a [id number] encounter with the patient on the same day, and personally performed and documented my assessment and findings in the medical record. BLE weakness no change. Had headache after the LP. CT chest and Brain MRi no obvious masses. No clear evidence of malignancy. He has mild leukopenia may be due to marrow suppression from viral illness. Continue to monitor. Dayanna Zelaya Sep 22, 2016 15:23 Marco Rizo MD Sep 22, 2016 16:56
[2016-09-22 16:00] VITALS: BP 152/79; PULSE 70; RESP 18; TEMP 99.7; O2SAT 99
--- NOTE | 2016-09-22 16:50 | HHI.IDPN ---
Subjective Subjective Remarks is a 56-y/o AAM presents to the ED at [facility] for LLE weakness, unsteady gait. s/p LP for possible myelitis, also being followed for leucopenia of uncertain etiology. Overnight events reviewed Low grade fevers No rash No diarrhea Complains of nausea and headache since the LP yesterday. Zofran and pain meds seem to help. Patient refused labs: need LFTs, HIV and hepatitis tests to be performed. Antibiotics None Lines Line sites with no e/o infection Past Medical History reviewed. Allergies: Coded Allergies: No Known Allergies (Verified , 09/19/16) Objective . Vital Signs Date Time Temp Pulse Resp B/P Pulse Ox O2 Delivery O2 Flow Rate FiO2 09/22/16 11:59 98.9 107 17 137/59 96 09/22/16 08:00 99.8 81 18 108/57 97 09/22/16 04:00 99.7 91 16 123/65 99 09/21/16 19:00 99.1 64 18 124/71 98 09/21/16 09/21/16 09/22/16 15:00 23:00 07:00 Intake Total 240 ml 480 ml 487 ml Balance 240 ml 480 ml 487 ml Intake Oral 240 ml 480 ml IV Total 487 ml # Voids 2 2 # Bowel Movements 0 0 . Laboratory Tests Test 09/20/16 09/21/16 21:05 05:51 Erythrocyte Sedimentation Rate 28 mm/hr White Blood Count 1.9 TH/MM3 Red Blood Count 4.12 MIL/MM3 Hemoglobin 12.0 GM/DL Hematocrit 36.0 % Mean Corpuscular Volume 87.2 FL Mean Corpuscular Hemoglobin 29.1 PG Mean Corpuscular Hemoglobin 33.3 % Concent Red Cell Distribution Width 13.1 % Platelet Count 200 TH/MM3 Mean Platelet Volume 10.5 FL Neutrophils (%) (Auto) 48.9 % Lymphocytes (%) (Auto) 28.9 % Monocytes (%) (Auto) 21.1 % Eosinophils (%) (Auto) 0.1 % Basophils (%) (Auto) 1.0 % Neutrophils # (Auto) 0.9 TH/MM3 Lymphocytes # (Auto) 0.5 TH/MM3 Monocytes # (Auto) 0.4 TH/MM3 Eosinophils # (Auto) 0.0 TH/MM3 Basophils # (Auto) 0.0 TH/MM3 CBC Comment AUTO DIFF Differential Total Cells 100 Counted Neutrophils % (Manual) 60 % Lymphocytes % 21 % Monocytes % 17 % Basophils % 2 % Neutrophils # (Manual) 1.1 TH/MM3 Differential Comment FINAL DIFF MANUAL Platelet Estimate NORMAL Platelet Morphology Comment ENLARGED Laboratory Tests Test 09/20/16 09/21/16 21:05 05:51 C-Reactive Protein 0.90 MG/DL Vitamin B12 Level 362 PG/ML Thyroid Stimulating Hormone 0.131 uIU/ML 3rd Gen Sodium Level 140 MEQ/L Potassium Level 4.0 MEQ/L Chloride Level 107 MEQ/L Carbon Dioxide Level 27.3 MEQ/L Anion Gap 6 MEQ/L Blood Urea Nitrogen 15 MG/DL Creatinine 0.93 MG/DL Estimat Glomerular Filtration 103 ML/MIN Rate Random Glucose 111 MG/DL Calcium Level 8.7 MG/DL Microbiology Date/Time Procedure Status Source Growth 09/20/16 21:00 Aerobic Blood Culture - Preliminary Resulted Blood Peripheral NO GROWTH IN 2 DAYS 09/20/16 21:00 Anaerobic Blood Culture - Preliminary Resulted Blood Peripheral NO GROWTH IN 2 DAYS 09/20/16 21:05 Aerobic Blood Culture - Preliminary Resulted Blood Peripheral NO GROWTH IN 2 DAYS 09/20/16 21:05 Anaerobic Blood Culture - Preliminary Resulted Blood Peripheral NO GROWTH IN 2 DAYS 09/21/16 14:00 Gram Stain - Final Resulted Cerebral Spinal Fluid Lumbar Puncture 09/21/16 14:00 CSF Culture - Preliminary Resulted Cerebral Spinal Fluid Lumbar Puncture NO GROWTH IN 24 HOURS. 09/21/16 14:00 Acid Fast Stain - Final Resulted Cerebral Spinal Fluid Lumbar Puncture NO ACID FAST BACILLI SEEN 09/21/16 14:00 Mycobacterial Culture Resulted Cerebral Spinal Fluid Lumbar Puncture Pending 09/21/16 14:00 Fungal Smear - Final Resulted Cerebral Spinal Fluid Lumbar Puncture NO FUNGAL ELEMENTS SEEN. 09/21/16 14:00 Fungal Culture Resulted Cerebral Spinal Fluid Lumbar Puncture Pending Imaging Last Impressions Brain MRI 09/22/16 0000 Signed Impressions: Service Date/Time: Thursday, September 22, 2016 08:10 - CONCLUSION: 1. No acute findings. No abnormal enhancement. Minimal signal abnormality in the periventricular white matter most characteristic of mild chronic ischemic demyelinization, commonly seen with history of hypertension. Remote tiny lacunar infarct left thalamus. Flex Mae MD Lumbar Puncture Fluoroscopy 09/21/16 0000 Signed Impressions: Service Date/Time: Wednesday, September 21, 2016 13:48 - CONCLUSION: Uncomplicated fluoroscopically guided lumbar puncture with pressures as above. Danial Basurto MD Chest CT 09/21/16 0000 Signed Impressions: Service Date/Time: Wednesday, September 21, 2016 17:52 - CONCLUSION: No abnormality is seen in the chest. Hypodensities are seen in the liver likely related to cysts. Ez Odell MD Abdomen Ultrasound 09/21/16 0000 Signed Impressions: Service Date/Time: Wednesday, September 21, 2016 16:47 - CONCLUSION: No acute disease. Hepatic cysts are seen. Ez Odell MD Physical Exam GENERAL: Thin built, well nourished patient, in no apparent distress. SKIN: No rashes, ecchymoses or lesions. Cool and dry. HEAD: Atraumatic. Normocephalic. No temporal or scalp tenderness. EYES: Pupils equal round and reactive. Extraocular motions intact. No scleral icterus. No injection or drainage. ENT: Nose without bleeding, purulent drainage or septal hematoma. Throat without erythema, tonsillar hypertrophy or exudate. Uvula midline. Airway patent. NECK: Trachea midline. Supple, nontender, no meningeal signs. CARDIOVASCULAR: HS audible. No murmur appreciated. RESPIRATORY: Clear to auscultation. Breath sounds equal bilaterally. No wheezes , rales, or rhonchi. GASTROINTESTINAL: Abdomen soft, non-tender, nondistended. MUSCULOSKELETAL: Extremities without clubbing, cyanosis, or edema. No joint tenderness, effusion, or edema noted. No calf tenderness. Negative Homans sign bilaterally. NEUROLOGICAL: Awake and alert. Left UE 4+/5. LLE power 3 +/5. Inguinal LNs palpable, non tender, shotty LNs. No penile lesions. 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 Lymphadenitis Severe Leucopenia with normal platelets. Inguinal hernia s/p surgery and lymph node biopsy and ? removal. Left LE weakness ? related to pain Recs If headache persists consult IR for a CSF leak patch. Need labs drawn: patient refused below tests. Asked RN to call lab and try again. If continues to refuse lab will need psych evaluation to assess for depression. Check LFTs Check HIV and Hepatitis profile Check RPR Follow up CBC needed Check HIV DNA PCR to r/o acute retroviral syndrome. Follow CSF HSV PCR; CSF HANSEL virus; CSF VDRL Follow CSF cultures Follow cultures Follow clinically. Follow crypto in CSF. dw patient and RN. Flor Jalloh MD Sep 22, 2016 16:50
--- NOTE | 2016-09-22 17:08 | HHI.PR ---
Subjective Interval History Alert, verbal, complaining of left groin pain, anxious, has been refusing some of his labs Review of Systems Constitutional Constitutional Remarks Able to ambulate to the bathroom, left groin pain, 10 systems reviewed and otherwise negative Hematologic/Lymphatic Heme/Lymph Remarks Very small left groin tender lymphadenopathy Vitals/Results Intake & Output 09/21/16 09/21/16 09/22/16 15:00 23:00 07:00 Intake Total 240 ml 480 ml 487 ml Balance 240 ml 480 ml 487 ml Intake Oral 240 ml 480 ml IV Total 487 ml # Voids 2 2 # Bowel Movements 0 0 Vital Signs Vital Signs Date Time Temp Pulse Resp B/P Pulse Ox O2 Delivery O2 Flow Rate FiO2 09/22/16 11:59 98.9 107 17 137/59 96 09/22/16 08:00 99.8 81 18 108/57 97 09/22/16 04:00 99.7 91 16 123/65 99 09/21/16 19:00 99.1 64 18 124/71 98 CBC/BMP: 09/21/16 0551 09/21/16 0551 Physical Exam General General Appearance: Well Developed, Comfortable Eyes Eye Exam: Pupils Reactive Ears & Nose Ears & Nose Exam: Nasal Mucosa [place] Throat Throat Exam: Oral Mucosa [place] & Moist Neck Neck Exam: Trachea Midline Pulmonary Resp Exam: Breath Sounds Equal, No Distress Cardiology CV Exam: Normal Sinus Rhythm, Good Perfusion Gastrointestinal/Abdomen GI Exam: Non-Tender, Bowel Sounds Present Hematologic/Lymphatic Heme Remarks Very small left groin tender lymphadenopathy Musculoskeletal MS Exam: Normal Tone Integumentary Skin Exam: Warm, Dry Extremeties Extremities Exam: No Edema, Pedal Pulses Palpable Neurologic Neuro Exam: Alert, Awake, Oriented, Speech Clear, Moving All Extremities, Recreational Vehicle Repairer Equal, No Focal Deficits VTE Prophylaxis VTE Prophylaxis Device: SCDs Assessment/Plan Assessment/Plan Assessment Lower extremity weakness. Improving Status post lumbar puncture 09/21/16 Lymphadenopathy. Etiology unclear Question myelopathy Poorly controlled hypertension. Left groin pain Previously positive Q fever serology, significance unclear. Leukopenia. Management. Neurosurgery consult noted, no indication for surgery at this time ID and Neurology following Labs pending Patient recommended to comply with the labs ordered Pain control Follow CBC DVT prophylaxis. Continue home medications. Discussed with patient. Alan Lema MD Sep 22, 2016 17:08
[2016-09-22] MEDS: ACYCLOVIR INJ 650 MG in SODIUM CHLORIDE 0.9% INJ 100 ML IV SCH (19:35)
[2016-09-22 19:50] VITALS: BP 132/67; PULSE 81; RESP 16; TEMP 98.5; O2SAT 97
[2016-09-22 20:33] LABS: BLOOD, URINE NEG (NEG); COMMENT (UR) CULT NOT INDICATED; CULTURE IF INDICATED CULT NOT INDICATED; GLUCOSE,URINE NEG (NEG); KETONE, URINE TRACE mg/dL (NEG); MUCUS URINE FEW /lpf (OCC); NITRITE,URINE NEG (NEG); PH, URINE 5.5 (5.0-8.5); SQUAMOUS EPITHELIAL CELL URINE <1 /hpf (0-5); URINE COLOR YELLOW (YELLW/STRAW)
[2016-09-22 22:12] LABS: CHLAMYDIA PCR NOT DETECTED (NOT DETECT); NEISSERIA PCR NOT DETECTED (NOT DETECT)
[2016-09-23 00:50] VITALS: BP 114/69; PULSE 75; RESP 16; TEMP 98.6; O2SAT 98
[2016-09-23] MEDS: ACYCLOVIR INJ 650 MG in SODIUM CHLORIDE 0.9% INJ 100 ML IV SCH ×2 (02:58→10:21)
[2016-09-23 05:47] LABS: AUTOMATED NEUTROPHIL # 1.8 TH/MM3 (1.8-7.7); BASOPHIL % 0.7 % (0.0-2.0); EOSINOPHIL % 0.9 % (0.0-4.0); HEMATOCRIT 37.1 % (39.0-51.0); LYMPH % 29.8 % (9.0-44.0); MEAN CELL VOLUME 87.3 FL (80.0-100.0); MEAN CORPUSCULAR HEMOGLOBIN 28.8 PG (27.0-34.0); NEUT % 54.6 % (16.0-70.0); PLATELET COUNT 242 TH/MM3 (150-450); RED BLOOD COUNT 4.25 MIL/MM3 (4.50-5.90); RED CELL DISTRIBUTION WIDTH 12.7 % (11.6-17.2); WHITE BLOOD COUNT 3.3 TH/MM3 (4.0-11.0)
[2016-09-23 06:04] LABS: HEMO FLAGS AUTO DIFF
[2016-09-23 06:14] LABS: TRANSFERRIN IRON PROFILE 219 MG/DL (200-360)
[2016-09-23 06:15] LABS: INDIRECT BILIRUBIN 0.7 MG/DL (0.0-0.8); TOTAL BILIRUBIN ADULT 0.9 MG/DL (0.2-1.0)
[2016-09-23 06:28] LABS: FERRITIN 301 NG/ML (26-388); LDH SERUM 193 U/L (87-241)
[2016-09-23 07:53] LABS: PLATELET ESTIMATE SMEAR NORMAL (NORMAL); PLATELET MORPHOLOGY ENLARGED (NORMAL); SCAN/DIFF AUTO DIFF CONFIRMED
[2016-09-23 08:04] VITALS: BP 137/75; PULSE 77; RESP 16; TEMP 98.7; O2SAT 98
[2016-09-23] MEDS: SODIUM CHLORIDE 0.9% FLUSH 5 ML FLUSH FLUSH SCH (09:00)
[2016-09-23 09:15] LABS: HSV 1,PCR Negative (Negative)
[2016-09-23] MEDS: DOCUSATE SODIUM 100 MG CAP PO SCH ×2 (10:21→22:37)
[2016-09-23] MEDS: MULTIVITAMIN TAB PO SCH (10:21)
[2016-09-23] MEDS: NIFEdipine 60 MG SUSTAINED RELEASE TAB PO SCH (10:21)
[2016-09-23] MEDS: MORPHINE SULFATE 30 MG CONTROLLED RELEASE TAB PO SCH ×2 (10:22→22:38)
[2016-09-23] MEDS: SODIUM CHLOR 0.45% 1000 ML INJ 1,000 ML IV SCH (10:23)
[2016-09-23 12:02] VITALS: BP 130/79; PULSE 76; RESP 18; TEMP 98.1; O2SAT 97
--- NOTE | 2016-09-23 12:32 | HHI.PR ---
Subjective Subjective Remarks ambulated slowly to bathroom no fever no cp no sob legs not as weak, has paresthesia asking if he is going home today Review of Systems Constitutional Constitutional Remarks 12 point ROS completed, negative except as noted above, unreliable Vitals/Results Intake & Output 09/22/16 09/22/16 09/23/16 15:00 23:00 07:00 Intake Total 480 ml 720 ml 240 ml Output Total 600 ml 200 ml Balance 480 ml 120 ml 40 ml Intake Oral 480 ml 720 ml 240 ml Output Urine Total 600 ml 200 ml # Voids 4 # Bowel Movements 0 0 0 Vital Signs Vital Signs Date Time Temp Pulse Resp B/P Pulse Ox O2 Delivery O2 Flow Rate FiO2 09/23/16 08:04 98.7 77 16 137/75 98 09/23/16 00:50 98.6 75 16 114/69 98 09/22/16 19:50 98.5 81 16 132/67 97 09/22/16 16:00 99.7 70 18 152/79 99 CBC/BMP: 09/23/16 0507 09/21/16 0551 Lab Results Laboratory Tests Test 09/22/16 09/23/16 19:47 05:07 Chlamydia trachomatis DNA NOT DETECTED (PCR) Neisseria gonorrhoeae DNA NOT DETECTED (PCR) Urine Color YELLOW Urine Turbidity CLEAR Urine pH 5.5 Urine Specific [place] 1.016 Urine Protein TRACE mg/dL Urine Glucose (UA) NEG mg/dL Urine Ketones TRACE mg/dL Urine Occult Blood NEG Urine Nitrite NEG Urine Bilirubin NEG Urine Urobilinogen LESS THAN 2.0 MG/DL Urine Leukocyte Esterase NEG Urine RBC LESS THAN 1 /hpf Urine WBC LESS THAN 1 /hpf Urine Squamous Epithelial <1 /hpf Cells Urine Mucus FEW /lpf Microscopic Urinalysis Comment CULT NOT INDICATED White Blood Count 3.3 TH/MM3 Red Blood Count 4.25 MIL/MM3 Hemoglobin 12.2 GM/DL Hematocrit 37.1 % Mean Corpuscular Volume 87.3 FL Mean Corpuscular Hemoglobin 28.8 PG Mean Corpuscular Hemoglobin 33.0 % Concent Red Cell Distribution Width 12.7 % Platelet Count 242 TH/MM3 Mean Platelet Volume 10.0 FL Neutrophils (%) (Auto) 54.6 % Lymphocytes (%) (Auto) 29.8 % Monocytes (%) (Auto) 14.0 % Eosinophils (%) (Auto) 0.9 % Basophils (%) (Auto) 0.7 % Neutrophils # (Auto) 1.8 TH/MM3 Lymphocytes # (Auto) 1.0 TH/MM3 Monocytes # (Auto) 0.5 TH/MM3 Eosinophils # (Auto) 0.0 TH/MM3 Basophils # (Auto) 0.0 TH/MM3 CBC Comment AUTO DIFF Differential Comment AUTO DIFF CONFIRMED Platelet Estimate NORMAL Platelet Morphology Comment ENLARGED Iron Level 39 MCG/DL Total Iron Binding Capacity 307 MCG/DL Percent Iron Saturation 12.7 % Ferritin 301 NG/ML Total Bilirubin 0.9 MG/DL Direct Bilirubin 0.2 MG/DL Indirect Bilirubin 0.7 MG/DL Aspartate Amino Transf 16 U/L (AST/SGOT) Alanine Aminotransferase 32 U/L (ALT/SGPT) Alkaline Phosphatase 56 U/L Lactate Dehydrogenase 193 U/L Total Protein 7.5 GM/DL Albumin 3.4 GM/DL Folate 16.1 NG/ML Rapid Plasma Reagin NON-REACTIVE Hepatitis A IgM Antibody NEGATIVE Hepatitis B Surface Antigen NEGATIVE Hepatitis B Core IgM Antibody NEGATIVE Hepatitis C Antibody NEGATIVE HIV (1&2) Antibody REFLEX Physical Exam General General Appearance: Well Developed, Comfortable, Malnourished Eyes Eye Exam: Pupils Equal, Pupils Reactive Ears & Nose Ears & Nose Exam: Nasal Mucosa [place] Throat Throat Exam: Oral Mucosa [place] & Moist Neck Neck Exam: Trachea Midline Pulmonary Resp Exam: Breath Sounds Equal, No Distress Cardiology CV Exam: Normal Sinus Rhythm, Good Perfusion Gastrointestinal/Abdomen GI Exam: Non-Tender, Bowel Sounds Present Musculoskeletal MS Exam: Normal Tone Integumentary Skin Exam: Warm, Dry Extremeties Extremities Exam: No Edema, Pedal Pulses Palpable Neurologic Neuro Exam: Alert, Awake, Oriented, Speech Clear, Moving All Extremities, Gold Stamper Equal, No Focal Deficits Psychiatric Psych Exam: Appropriate Responses VTE Prophylaxis VTE Prophylaxis Device: SCDs Assessment/Plan Assessment/Plan Assessment Lower extremity weakness. Status post lumbar puncture 09/21/16 Lymphadenopathy. Question myelopathy Poorly controlled hypertension. Left groin pain Previously positive Q fever serology, significance unclear. Leukopenia. Reflex HIV + Management. Neurosurgery consult noted and appreciated Infectious disease consultation, input appreciated. D/W Dr. Jalloh, reflex HIV + . She spoke to pt. per ID, wait until CSF VDRL back stopped acyclovir Neurology input appreciated continue with abx Pain control DVT prophylaxis. Continue home medications. monitor WBC PT eval, has been refusing pt. poor historian, has not been forthcoming with information anxious to go home informed that work up is in progress, will dc when cleared by ID D/W RN D/W Dr. Lema D/W pt This patient was seen by myself and Dr. Lema, this note is written on his behalf. Essie Cabral Sep 23, 2016 12:32
--- NOTE | 2016-09-23 15:24 | PD.ONC.PN ---
Subjective Subjective Remarks Afebrile overnight. Pt sitting up in bed on the phone on approach. He states he feels about the same. He continues to have some weakness and paresthesias in his BLE. Objective Data Date Time Temp Pulse Resp B/P Pulse Ox O2 Delivery O2 Flow Rate FiO2 09/23/16 12:02 98.1 76 18 130/79 97 09/23/16 08:04 98.7 77 16 137/75 98 09/23/16 00:50 98.6 75 16 114/69 98 09/22/16 19:50 98.5 81 16 132/67 97 09/22/16 16:00 99.7 70 18 152/79 99 09/23/16 09/23/16 09/23/16 07:00 15:00 23:00 Intake Total 240 ml 100 ml Output Total 200 ml Balance 40 ml 100 ml Result Diagram: 09/23/16 0507 09/21/16 0551 Laboratory Results Laboratory Tests Test 09/22/16 09/23/16 19:47 05:07 Chlamydia trachomatis DNA NOT DETECTED (PCR) Neisseria gonorrhoeae DNA NOT DETECTED (PCR) Urine Color YELLOW Urine Turbidity CLEAR Urine pH 5.5 Urine Specific [place] 1.016 Urine Protein TRACE mg/dL Urine Glucose (UA) NEG mg/dL Urine Ketones TRACE mg/dL Urine Occult Blood NEG Urine Nitrite NEG Urine Bilirubin NEG Urine Urobilinogen LESS THAN 2.0 MG/DL Urine Leukocyte Esterase NEG Urine RBC LESS THAN 1 /hpf Urine WBC LESS THAN 1 /hpf Urine Squamous Epithelial <1 /hpf Cells Urine Mucus FEW /lpf Microscopic Urinalysis Comment CULT NOT INDICATED White Blood Count 3.3 TH/MM3 Red Blood Count 4.25 MIL/MM3 Hemoglobin 12.2 GM/DL Hematocrit 37.1 % Mean Corpuscular Volume 87.3 FL Mean Corpuscular Hemoglobin 28.8 PG Mean Corpuscular Hemoglobin 33.0 % Concent Red Cell Distribution Width 12.7 % Platelet Count 242 TH/MM3 Mean Platelet Volume 10.0 FL Neutrophils (%) (Auto) 54.6 % Lymphocytes (%) (Auto) 29.8 % Monocytes (%) (Auto) 14.0 % Eosinophils (%) (Auto) 0.9 % Basophils (%) (Auto) 0.7 % Neutrophils # (Auto) 1.8 TH/MM3 Lymphocytes # (Auto) 1.0 TH/MM3 Monocytes # (Auto) 0.5 TH/MM3 Eosinophils # (Auto) 0.0 TH/MM3 Basophils # (Auto) 0.0 TH/MM3 CBC Comment AUTO DIFF Differential Comment AUTO DIFF CONFIRMED Platelet Estimate NORMAL Platelet Morphology Comment ENLARGED Iron Level 39 MCG/DL Total Iron Binding Capacity 307 MCG/DL Percent Iron Saturation 12.7 % Ferritin 301 NG/ML Total Bilirubin 0.9 MG/DL Direct Bilirubin 0.2 MG/DL Indirect Bilirubin 0.7 MG/DL Aspartate Amino Transf 16 U/L (AST/SGOT) Alanine Aminotransferase 32 U/L (ALT/SGPT) Alkaline Phosphatase 56 U/L Lactate Dehydrogenase 193 U/L Total Protein 7.5 GM/DL Albumin 3.4 GM/DL Folate 16.1 NG/ML Rapid Plasma Reagin NON-REACTIVE Hepatitis A IgM Antibody NEGATIVE Hepatitis B Surface Antigen NEGATIVE Hepatitis B Core IgM Antibody NEGATIVE Hepatitis C Antibody NEGATIVE HIV (1&2) Antibody REFLEX Culture Results Microbiology Date/Time Procedure Status Source Growth 09/20/16 21:00 Aerobic Blood Culture - Preliminary Resulted Blood Peripheral NO GROWTH IN 3 DAYS 09/20/16 21:00 Anaerobic Blood Culture - Preliminary Resulted Blood Peripheral NO GROWTH IN 3 DAYS 09/20/16 21:05 Aerobic Blood Culture - Preliminary Resulted Blood Peripheral NO GROWTH IN 3 DAYS 09/20/16 21:05 Anaerobic Blood Culture - Preliminary Resulted Blood Peripheral NO GROWTH IN 3 DAYS 09/21/16 14:00 Gram Stain - Final Resulted Cerebral Spinal Fluid Lumbar Puncture 09/21/16 14:00 CSF Culture - Preliminary Resulted Cerebral Spinal Fluid Lumbar Puncture NO GROWTH IN 48 HOURS. 09/21/16 14:00 Acid Fast Stain - Final Resulted Cerebral Spinal Fluid Lumbar Puncture NO ACID FAST BACILLI SEEN 09/21/16 14:00 Mycobacterial Culture Resulted Cerebral Spinal Fluid Lumbar Puncture Pending 09/21/16 14:00 Fungal Smear - Final Resulted Cerebral Spinal Fluid Lumbar Puncture NO FUNGAL ELEMENTS SEEN. 09/21/16 14:00 Fungal Culture Resulted Cerebral Spinal Fluid Lumbar Puncture Pending Administered Medications Medications (Trade) Dose Ordered Sig/Sherice Route PRN Reason Start Time Stop Time Status Last Admin Dose Admin Sodium Chloride (08/23 NS 1000 ml Inj) 1,000 ml @ 75 mls/hr [id number] IV 09/20/16 15:00 09/23/16 10:23 IV Flush (NS Flush) 2 ml BID FLUSH 09/20/16 21:00 09/22/16 09:57 Ondansetron HCl (Zofran Inj) 4 mg Q6H PRN IVP NAUSEA OR VOMITING 09/20/16 14:30 09/22/16 05:40 Tizanidine HCl (Zanaflex) 4 mg Q12H PO 09/20/16 18:45 09/23/16 05:47 Morphine Sulfate (Oramorph Sr) 30 mg Q12HR PO 09/20/16 21:00 09/23/16 10:22 Docusate Sodium (Colace) 100 mg BID PO 09/20/16 21:00 09/23/16 10:21 Multivitamins (Theragran) 1 tab DAILY PO 09/21/16 09:00 09/23/16 10:21 Nifedipine (Procardia Xl) 60 mg DAILY PO 09/21/16 17:00 09/23/16 10:21 Morphine Sulfate (Morphine Inj) 4 mg Q3H PRN IV SEVERE PAIN 09/22/16 05:30 09/22/16 17:09 Objective Remarks GENERAL: Middle aged male sitting up in bed on the phone in no distress. SKIN: Warm and dry. HEAD: Normocephalic. EYES: No injection or drainage. NECK: Supple, trachea midline. CARDIOVASCULAR: +S1/S2. No murmur. RESPIRATORY: Breath sounds equal bilaterally. No accessory muscle use. GASTROINTESTINAL: Abdomen soft, non-tender, nondistended. EXTREMITIES: No edema. NEUROLOGICAL: No obvious focal deficit. Moving all extremities. Normal speech. Assessment/Plan Problem List: (1) Leukopenia Status: Acute Plan: --Mild neutropenia --Possibly due to mild marrow suppression. --Monitor CBC (2) Bilateral leg weakness Status: Acute Plan: -- Lumbar puncture on 09/21. Cytology pending. -- MRI cervical spine showed abnormal signal in lower cervical cord; suspicious for myelopathy. -- CT chest, MRI brain negative for other suspicious processes. Assessment 56 y/o male with bilateral lower extremity weakness and paresthesias. Plan 1. Lumbar puncture still pending 2. Labs in am. Leukopenia improved today. 3. OK for D/C from oncology standpoint 4. Supportive care Attending Statement The exam, history, and the medical decision-making described in the above note were completed with the assistance of the mid-level provider. I reviewed and agree with the findings presented. I attest that I had a [id number] encounter with the patient on the same day, and personally performed and documented my assessment and findings in the medical record. No new symptoms. No clear evidence of malignancy. Leukopenia has improved. Await cytology. Dayanna Zelaya Sep 23, 2016 15:24 Marco Rizo MD Sep 23, 2016 16:29
[2016-09-23 16:10] VITALS: BP 120/70; PULSE 74; RESP 16; TEMP 98.3; O2SAT 98
[2016-09-23] MEDS: MAGNESIUM HYDROXIDE SUSP 30 ML CUP PO PRN (16:38)
--- NOTE | 2016-09-23 19:54 | HHI.IDPN ---
Subjective Subjective Remarks is a 56-y/o AAM presents to the ED at [facility] for LLE weakness, unsteady gait. s/p LP for possible myelitis, also being followed for leucopenia of uncertain etiology. Overnight events reviewed Low grade fevers No rash No diarrhea Complains of nausea and headache since the LP yesterday. Zofran and pain meds seem to help. Patient refused labs: need LFTs, HIV and hepatitis tests to be performed. Antibiotics None Lines Line sites with no e/o infection Past Medical History reviewed. Allergies: Coded Allergies: No Known Allergies (Verified , 09/19/16) Objective . Vital Signs Date Time Temp Pulse Resp B/P Pulse Ox O2 Delivery O2 Flow Rate FiO2 09/23/16 16:10 98.3 74 16 120/70 98 09/23/16 12:02 98.1 76 18 130/79 97 09/23/16 08:04 98.7 77 16 137/75 98 09/23/16 00:50 98.6 75 16 114/69 98 09/22/16 19:50 98.5 81 16 132/67 97 09/22/16 09/22/16 09/23/16 15:00 23:00 07:00 Intake Total 480 ml 720 ml 240 ml Output Total 600 ml 200 ml Balance 480 ml 120 ml 40 ml Intake Oral 480 ml 720 ml 240 ml Output Urine Total 600 ml 200 ml # Voids 4 # Bowel Movements 0 0 0 . Laboratory Tests Test 09/23/16 05:07 White Blood Count 3.3 TH/MM3 Red Blood Count 4.25 MIL/MM3 Hemoglobin 12.2 GM/DL Hematocrit 37.1 % Mean Corpuscular Volume 87.3 FL Mean Corpuscular Hemoglobin 28.8 PG Mean Corpuscular Hemoglobin 33.0 % Concent Red Cell Distribution Width 12.7 % Platelet Count 242 TH/MM3 Mean Platelet Volume 10.0 FL Neutrophils (%) (Auto) 54.6 % Lymphocytes (%) (Auto) 29.8 % Monocytes (%) (Auto) 14.0 % Eosinophils (%) (Auto) 0.9 % Basophils (%) (Auto) 0.7 % Neutrophils # (Auto) 1.8 TH/MM3 Lymphocytes # (Auto) 1.0 TH/MM3 Monocytes # (Auto) 0.5 TH/MM3 Eosinophils # (Auto) 0.0 TH/MM3 Basophils # (Auto) 0.0 TH/MM3 CBC Comment AUTO DIFF Differential Comment AUTO DIFF CONFIRMED Platelet Estimate NORMAL Platelet Morphology Comment ENLARGED Laboratory Tests Test 09/23/16 05:07 Iron Level 39 MCG/DL Total Iron Binding Capacity 307 MCG/DL Percent Iron Saturation 12.7 % Ferritin 301 NG/ML Total Bilirubin 0.9 MG/DL Direct Bilirubin 0.2 MG/DL Indirect Bilirubin 0.7 MG/DL Aspartate Amino Transf 16 U/L (AST/SGOT) Alanine Aminotransferase 32 U/L (ALT/SGPT) Alkaline Phosphatase 56 U/L Lactate Dehydrogenase 193 U/L Total Protein 7.5 GM/DL Albumin 3.4 GM/DL Folate 16.1 NG/ML Microbiology Date/Time Procedure Status Source Growth 09/20/16 21:00 Aerobic Blood Culture - Preliminary Resulted Blood Peripheral NO GROWTH IN 3 DAYS 09/20/16 21:00 Anaerobic Blood Culture - Preliminary Resulted Blood Peripheral NO GROWTH IN 3 DAYS 09/20/16 21:05 Aerobic Blood Culture - Preliminary Resulted Blood Peripheral NO GROWTH IN 3 DAYS 09/20/16 21:05 Anaerobic Blood Culture - Preliminary Resulted Blood Peripheral NO GROWTH IN 3 DAYS 09/21/16 14:00 Gram Stain - Final Resulted Cerebral Spinal Fluid Lumbar Puncture 09/21/16 14:00 CSF Culture - Preliminary Resulted Cerebral Spinal Fluid Lumbar Puncture NO GROWTH IN 48 HOURS. 09/21/16 14:00 Acid Fast Stain - Final Resulted Cerebral Spinal Fluid Lumbar Puncture NO ACID FAST BACILLI SEEN 09/21/16 14:00 Mycobacterial Culture Resulted Cerebral Spinal Fluid Lumbar Puncture Pending 09/21/16 14:00 Fungal Smear - Final Resulted Cerebral Spinal Fluid Lumbar Puncture NO FUNGAL ELEMENTS SEEN. 09/21/16 14:00 Fungal Culture Resulted Cerebral Spinal Fluid Lumbar Puncture Pending Imaging Last Impressions Brain MRI 09/22/16 0000 Signed Impressions: Service Date/Time: Thursday, September 22, 2016 08:10 - CONCLUSION: 1. No acute findings. No abnormal enhancement. Minimal signal abnormality in the periventricular white matter most characteristic of mild chronic ischemic demyelinization, commonly seen with history of hypertension. Remote tiny lacunar infarct left thalamus. Flex Mae MD Lumbar Puncture Fluoroscopy 09/21/16 0000 Signed Impressions: Service Date/Time: Wednesday, September 21, 2016 13:48 - CONCLUSION: Uncomplicated fluoroscopically guided lumbar puncture with pressures as above. Danial Basurto MD Chest CT 09/21/16 0000 Signed Impressions: Service Date/Time: Wednesday, September 21, 2016 17:52 - CONCLUSION: No abnormality is seen in the chest. Hypodensities are seen in the liver likely related to cysts. Ez Odell MD Abdomen Ultrasound 09/21/16 0000 Signed Impressions: Service Date/Time: Wednesday, September 21, 2016 16:47 - CONCLUSION: No acute disease. Hepatic cysts are seen. Ez Odell MD Physical Exam GENERAL: Thin built, well nourished patient, in no apparent distress. SKIN: No rashes, ecchymoses or lesions. Cool and dry. HEAD: Atraumatic. Normocephalic. No temporal or scalp tenderness. EYES: Pupils equal round and reactive. Extraocular motions intact. No scleral icterus. No injection or drainage. ENT: Nose without bleeding, purulent drainage or septal hematoma. Throat without erythema, tonsillar hypertrophy or exudate. Uvula midline. Airway patent. NECK: Trachea midline. Supple, nontender, no meningeal signs. CARDIOVASCULAR: HS audible. No murmur appreciated. RESPIRATORY: Clear to auscultation. Breath sounds equal bilaterally. No wheezes , rales, or rhonchi. GASTROINTESTINAL: Abdomen soft, non-tender, nondistended. MUSCULOSKELETAL: Extremities without clubbing, cyanosis, or edema. No joint tenderness, effusion, or edema noted. No calf tenderness. Negative Homans sign bilaterally. NEUROLOGICAL: Awake and alert. Left UE 4+/5. LLE power 3 +/5. Inguinal LNs palpable, non tender, shotty LNs. No penile lesions. 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 HIV related Inguinal hernia s/p surgery and lymph node biopsy and ? removal. Left LE weakness ? related to pain Recs: CSF HSV PCR Negative HIV antibody 1/2 positive. Check CD4 count Check HIV genotype and phenotype. Follow CSF HANSEL virus; CSF VDRL Follow CSF cultures Follow cultures Follow clinically. Follow crypto in CSF. dw patient and RN. If CD4 < 50 start Azithro 1200 mg once a week. If CD4 count < 100 call me. Check G6PD for deciding on PCP prophylaxis. Please call me when results of above available or else I will plan on seeing patient next on Tuesday next week. aid covering for me this weekend. Flor Jalloh MD Sep 23, 2016 19:54
[2016-09-23 20:40] VITALS: BP 157/80; PULSE 80; RESP 16; TEMP 98.6; O2SAT 100
[2016-09-24] VITALS: BP 142/82; PULSE 77; RESP 18; TEMP 100; O2SAT 98
[2016-09-24 06:18] LABS: AUTOMATED NEUTROPHIL # 1.9 TH/MM3 (1.8-7.7); BASOPHIL # 0.1 TH/MM3 (0-0.2); BASOPHIL % 1.6 % (0.0-2.0); EOSINOPHIL % 1.3 % (0.0-4.0); HEMATOCRIT 38.3 % (39.0-51.0); LYMPH % 34.6 % (9.0-44.0); LYMPHOCYTE # 1.3 TH/MM3 (1.0-4.8); MEAN CELL VOLUME 87.6 FL (80.0-100.0); MEAN CORPUSCULAR HEMOGLOBIN 29.7 PG (27.0-34.0); MEAN CORPUSCULAR HGB CONC 33.8 % (32.0-36.0); MONO % 12.1 % (0.0-8.0); NEUT % 50.4 % (16.0-70.0); PLATELET COUNT 282 TH/MM3 (150-450); RED BLOOD COUNT 4.37 MIL/MM3 (4.50-5.90); RED CELL DISTRIBUTION WIDTH 12.8 % (11.6-17.2); WHITE BLOOD COUNT 3.7 TH/MM3 (4.0-11.0)
[2016-09-24 06:19] LABS: HEMO FLAGS AUTO DIFF
[2016-09-24 07:14] LABS: PLATELET ESTIMATE SMEAR NORMAL (NORMAL); PLATELET MORPHOLOGY ENLARGED (NORMAL); SCAN/DIFF AUTO DIFF CONFIRMED
[2016-09-24 08:00] VITALS: BP 126/81; PULSE 76; RESP 18; TEMP 97.2; O2SAT 100
--- NOTE | 2016-09-24 08:56 | HHI.NSPN ---
History Chief Complaint: i got fired Interval History 56 yr old admitted with gait difficulty and spasticity now improved neurologically. T2 weighted abnormality on the cervical cord on MRI indicated myelitis. CSF from LP showed increased lymphocytes and protein and no fungi indicating a possible viral myelitis. Oligoclonal bands and viral work up are pending. He is improved at this time and able to ambulate. The pain has improved on the present medications. Review of Systems General: Negative for: fever, chills, insomnia Respiratory: Negative for: shortness of breath, cough, sputum Cardiovascular: Negative for: chest pain, palpitations, orthopnea Gastrointestinal: Negative for: nausea, vomitting, diarrhea, constipation Genitourinary: Negative for: urinary burning, urinary frequency, urinary urgency Exam Results Vital Signs Date Time Temp Pulse Resp B/P Pulse Ox O2 Delivery O2 Flow Rate FiO2 09/24/16 00:00 100.0 77 18 142/82 98 Intake and Output 09/23/16 09/23/16 09/24/16 08:00 16:00 00:00 Intake Total 240 ml 100 ml 240 ml Output Total 200 ml Balance 40 ml 100 ml 240 ml Physical Examination Alert, oriented x 3, speech fluent, attention is good Moves both HF/Quads 5/5, no clonus, no babinski, no sensory level Skin warm and dry. Lab, Micro, Other Results Microbiology Date/Time Procedure Status Source Growth 09/21/16 14:00 Gram Stain - Final Complete Cerebral Spinal Fluid Lumbar Puncture 09/21/16 14:00 CSF Culture - Final Complete Cerebral Spinal Fluid Lumbar Puncture NO GROWTH IN 72 HOURS 09/21/16 14:00 Acid Fast Stain - Final Resulted Cerebral Spinal Fluid Lumbar Puncture NO ACID FAST BACILLI SEEN 09/21/16 14:00 Mycobacterial Culture Resulted Cerebral Spinal Fluid Lumbar Puncture Pending 09/21/16 14:00 Fungal Smear - Final Resulted Cerebral Spinal Fluid Lumbar Puncture NO FUNGAL ELEMENTS SEEN. 09/21/16 14:00 Fungal Culture Resulted Cerebral Spinal Fluid Lumbar Puncture Pending Laboratory Tests Test 09/24/16 04:37 White Blood Count 3.7 TH/MM3 Red Blood Count 4.37 MIL/MM3 Hemoglobin 13.0 GM/DL Hematocrit 38.3 % Mean Corpuscular Volume 87.6 FL Mean Corpuscular Hemoglobin 29.7 PG Mean Corpuscular Hemoglobin 33.8 % Concent Red Cell Distribution Width 12.8 % Platelet Count 282 TH/MM3 Mean Platelet Volume 10.0 FL Neutrophils (%) (Auto) 50.4 % Lymphocytes (%) (Auto) 34.6 % Monocytes (%) (Auto) 12.1 % Eosinophils (%) (Auto) 1.3 % Basophils (%) (Auto) 1.6 % Neutrophils # (Auto) 1.9 TH/MM3 Lymphocytes # (Auto) 1.3 TH/MM3 Monocytes # (Auto) 0.4 TH/MM3 Eosinophils # (Auto) 0.0 TH/MM3 Basophils # (Auto) 0.1 TH/MM3 CBC Comment AUTO DIFF Differential Comment AUTO DIFF CONFIRMED Platelet Estimate NORMAL Platelet Morphology Comment ENLARGED Medical Decision Making Impression and Plan 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 The patient is presently unable to work and will need disability until treated. Total Minutes: 10 Juan Jose Turner Sep 24, 2016 08:56
[2016-09-24] MEDS ORDERED: NIFE15TA PO (09:00)
[2016-09-24] MEDS ORDERED: TIZA4 PO (09:00)
[2016-09-24] MEDS ORDERED: MORP1TAB25 PO (09:00)
[2016-09-24] MEDS: NIFEdipine 60 MG SUSTAINED RELEASE TAB PO SCH (11:08)
[2016-09-24] MEDS: MULTIVITAMIN TAB PO SCH (11:09)
[2016-09-24] MEDS: MAGNESIUM HYDROXIDE SUSP 30 ML CUP PO PRN (11:12)
[2016-09-24] MEDS: MORPHINE SULFATE 30 MG CONTROLLED RELEASE TAB PO SCH ×2 (11:12→21:14)
[2016-09-24] MEDS: DOCUSATE SODIUM 100 MG CAP PO SCH ×2 (11:12→21:14)
--- NOTE | 2016-09-24 11:20 | PD.ONC.PN ---
Subjective Subjective Remarks Afebrile overnight. Patient resting comfortably. he still has some mild pain in the back of his calves. Ate breakfast this AM. Objective Data Date Time Temp Pulse Resp B/P Pulse Ox O2 Delivery O2 Flow Rate FiO2 09/24/16 08:00 97.2 76 18 126/81 100 09/24/16 00:00 100.0 77 18 142/82 98 09/23/16 20:40 98.6 80 16 157/80 100 09/23/16 16:10 98.3 74 16 120/70 98 09/23/16 12:02 98.1 76 18 130/79 97 09/24/16 09/24/16 09/24/16 07:00 15:00 23:00 Intake Total 360 ml Balance 360 ml Result Diagram: 09/24/16 0437 09/21/16 0551 Laboratory Results Laboratory Tests Test 09/24/16 04:37 White Blood Count 3.7 TH/MM3 Red Blood Count 4.37 MIL/MM3 Hemoglobin 13.0 GM/DL Hematocrit 38.3 % Mean Corpuscular Volume 87.6 FL Mean Corpuscular Hemoglobin 29.7 PG Mean Corpuscular Hemoglobin 33.8 % Concent Red Cell Distribution Width 12.8 % Platelet Count 282 TH/MM3 Mean Platelet Volume 10.0 FL Neutrophils (%) (Auto) 50.4 % Lymphocytes (%) (Auto) 34.6 % Monocytes (%) (Auto) 12.1 % Eosinophils (%) (Auto) 1.3 % Basophils (%) (Auto) 1.6 % Neutrophils # (Auto) 1.9 TH/MM3 Lymphocytes # (Auto) 1.3 TH/MM3 Monocytes # (Auto) 0.4 TH/MM3 Eosinophils # (Auto) 0.0 TH/MM3 Basophils # (Auto) 0.1 TH/MM3 CBC Comment AUTO DIFF Differential Comment AUTO DIFF CONFIRMED Platelet Estimate NORMAL Platelet Morphology Comment ENLARGED Culture Results Microbiology Date/Time Procedure Status Source Growth 09/21/16 14:00 Gram Stain - Final Complete Cerebral Spinal Fluid Lumbar Puncture 09/21/16 14:00 CSF Culture - Final Complete Cerebral Spinal Fluid Lumbar Puncture NO GROWTH IN 72 HOURS 09/21/16 14:00 Acid Fast Stain - Final Resulted Cerebral Spinal Fluid Lumbar Puncture NO ACID FAST BACILLI SEEN 09/21/16 14:00 Mycobacterial Culture Resulted Cerebral Spinal Fluid Lumbar Puncture Pending 09/21/16 14:00 Fungal Smear - Final Resulted Cerebral Spinal Fluid Lumbar Puncture NO FUNGAL ELEMENTS SEEN. 09/21/16 14:00 Fungal Culture Resulted Cerebral Spinal Fluid Lumbar Puncture Pending Administered Medications Medications (Trade) Dose Ordered Sig/Sherice Route PRN Reason Start Time Stop Time Status Last Admin Dose Admin IV Flush (NS Flush) 2 ml BID FLUSH 09/20/16 21:00 09/22/16 09:57 Ondansetron HCl (Zofran Inj) 4 mg Q6H PRN IVP NAUSEA OR VOMITING 09/20/16 14:30 09/22/16 05:40 Tizanidine HCl (Zanaflex) 4 mg Q12H PO 09/20/16 18:45 09/24/16 07:38 Morphine Sulfate (Oramorph Sr) 30 mg Q12HR PO 09/20/16 21:00 09/24/16 11:12 Docusate Sodium (Colace) 100 mg BID PO 09/20/16 21:00 09/24/16 11:12 Multivitamins (Theragran) 1 tab DAILY PO 09/21/16 09:00 09/24/16 11:09 Nifedipine (Procardia Xl) 60 mg DAILY PO 09/21/16 17:00 09/24/16 11:08 Morphine Sulfate (Morphine Inj) 4 mg Q3H PRN IV SEVERE PAIN 09/22/16 05:30 09/22/16 17:09 Magnesium Hydroxide (Milk Of Magnesia Liq) 30 ml DAILY PRN PO Prevent Constipation 09/22/16 13:30 09/24/16 11:12 Objective Remarks GENERAL: Middle aged male, sitting up in bed in [facility]. SKIN: Warm and dry. HEAD: Normocephalic. EYES: No injection or drainage. NECK: Supple, trachea midline. CARDIOVASCULAR: Regular rate and rhythm RESPIRATORY: Breath sounds equal bilaterally. No accessory muscle use. GASTROINTESTINAL: Abdomen soft, non-tender, nondistended. EXTREMITIES: No cyanosis NEUROLOGICAL: awake and alert, normal speech. moving all extremities. Assessment/Plan Problem List: (1) Leukopenia Status: Acute Plan: 2/3: WBC stable --Mild neutropenia --Possibly due to mild marrow suppression. --Monitor CBC (2) Bilateral leg weakness Status: Acute Plan: -- Lumbar puncture on 09/21. Cytology pending. -- MRI cervical spine showed abnormal signal in lower cervical cord; suspicious for myelopathy. -- CT chest, MRI brain negative for other suspicious processes. Assessment 56 y/o male with bilateral lower extremity weakness and paresthesias. Plan 1. clear for d/c 2. await LP cytology 3. monitor CBC Attending Statement The exam, history, and the medical decision-making described in the above note were completed with the assistance of the mid-level provider. I reviewed and agree with the findings presented. I attest that I had a [id number] encounter with the patient on the same day, and personally performed and documented my assessment and findings in the medical record. Leg pain improving. WBC trending up. Neutropenia resolved. HIV+. Doubt he has malignancy. Laly Salinas Sep 24, 2016 11:20 Marco Rizo MD Sep 24, 2016 13:21
[2016-09-24 12:00] VITALS: BP 127/72; PULSE 85; RESP 18; TEMP 99.6; O2SAT 95
--- NOTE | 2016-09-24 13:17 | HHI.PR ---
Subjective Subjective Remarks ambulating to bathroom some calf pain legs not as weak no cp no sob no fever feeling overwhelmed with dx, starting to process Review of Systems Constitutional Constitutional Remarks 12 point ROS completed, negative except as noted above, unreliable Vitals/Results Intake & Output 09/23/16 09/23/16 09/24/16 15:00 23:00 07:00 Intake Total 100 ml 240 ml 360 ml Balance 100 ml 240 ml 360 ml Intake Oral 240 ml 360 ml IV Total 100 ml # Voids 5 1 # Bowel Movements 0 Vital Signs Vital Signs Date Time Temp Pulse Resp B/P Pulse Ox O2 Delivery O2 Flow Rate FiO2 09/24/16 08:00 97.2 76 18 126/81 100 09/24/16 00:00 100.0 77 18 142/82 98 09/23/16 20:40 98.6 80 16 157/80 100 09/23/16 16:10 98.3 74 16 120/70 98 CBC/BMP: 09/24/16 0437 09/21/16 0551 Lab Results Laboratory Tests Test 09/24/16 04:37 White Blood Count 3.7 TH/MM3 Red Blood Count 4.37 MIL/MM3 Hemoglobin 13.0 GM/DL Hematocrit 38.3 % Mean Corpuscular Volume 87.6 FL Mean Corpuscular Hemoglobin 29.7 PG Mean Corpuscular Hemoglobin 33.8 % Concent Red Cell Distribution Width 12.8 % Platelet Count 282 TH/MM3 Mean Platelet Volume 10.0 FL Neutrophils (%) (Auto) 50.4 % Lymphocytes (%) (Auto) 34.6 % Monocytes (%) (Auto) 12.1 % Eosinophils (%) (Auto) 1.3 % Basophils (%) (Auto) 1.6 % Neutrophils # (Auto) 1.9 TH/MM3 Lymphocytes # (Auto) 1.3 TH/MM3 Monocytes # (Auto) 0.4 TH/MM3 Eosinophils # (Auto) 0.0 TH/MM3 Basophils # (Auto) 0.1 TH/MM3 CBC Comment AUTO DIFF Differential Comment AUTO DIFF CONFIRMED Platelet Estimate NORMAL Platelet Morphology Comment ENLARGED Physical Exam General General Appearance: Well Developed, Comfortable, Malnourished Eyes Eye Exam: Pupils Equal, Pupils Reactive Ears & Nose Ears & Nose Exam: Nasal Mucosa [place] Throat Throat Exam: Oral Mucosa [place] & Moist Neck Neck Exam: Trachea Midline Pulmonary Resp Exam: Breath Sounds Equal, No Distress Cardiology CV Exam: Normal Sinus Rhythm, Good Perfusion Gastrointestinal/Abdomen GI Exam: Non-Tender, Bowel Sounds Present Musculoskeletal MS Exam: Normal Tone Integumentary Skin Exam: Warm, Dry Extremeties Extremities Exam: No Edema, Pedal Pulses Palpable Neurologic Neuro Exam: Alert, Awake, Oriented, Speech Clear, Moving All Extremities, Methods Examiner Equal, No Focal Deficits Psychiatric Psych Exam: Appropriate Responses VTE Prophylaxis VTE Prophylaxis Device: SCDs Assessment/Plan Assessment/Plan Assessment Lower extremity weakness. Status post lumbar puncture 09/21/16 Lymphadenopathy. Question myelopathy Poorly controlled hypertension. Left groin pain Previously positive Q fever serology, significance unclear. Leukopenia. Reflex HIV + Management. Neurosurgery consult noted and appreciated Infectious disease consultation, input appreciated. HIV antibody 1/2 positive, pending CD4 count, HIV genotype and phenotype. ID waiting for lab results, per her notes: If CD4 < 50 start Azithro 1200 mg once a week. If CD4 count < 100 call me. Recommends to check G6PD for deciding on PCP prophylaxis. Off acyclovir per ID Neurology input appreciated continue with abx Pain control DVT prophylaxis. Continue home medications. monitor WBC PT eval, has been refusing cleared for dc per Dr Turner has provided him with rx Wait for final results on HIV work up D/W pt. understands and agreeable D/W RN D/W Dr. Lema D/W pt This patient was seen by myself and Dr. Lema, this note is written on his behalf. Essie Cabral Sep 24, 2016 13:17
[2016-09-24 14:49] LABS: HIV 1 AB DIFFERENTIATION Positive (Negative); HIV 1/2 AG AND AB SCREEN Reactive (Negative); HIV 2 AB DIFFERENTIATION Negative (Negative)
[2016-09-24 15:49] LABS: IGG CSF 4.1 mg/dL (<=8.1); IGG INDEX CSF 0.53 (<=0.85); IGG/ALBUMIN CSF 0.17 (<=0.21); IGG/ALBUMIN SERUM 0.32 (<=0.40); SYNTHESIS RATE CSF 0.86 mg/24 h (<=12)
[2016-09-24 16:00] VITALS: BP 119/63; PULSE 84; RESP 18; TEMP 99.7; O2SAT 100
[2016-09-24 20:00] VITALS: BP 144/82; PULSE 75; RESP 18; TEMP 97.8; O2SAT 99
[2016-09-24] MEDS: SODIUM CHLORIDE 0.9% FLUSH 5 ML FLUSH FLUSH SCH ×2 (21:00→21:15)
[2016-09-24 23:56] LABS: VDRL CSF NON-REACTIVE (())
[2016-09-25] VITALS: BP 140/75; PULSE 77; RESP 18; TEMP 99.5; O2SAT 99
[2016-09-25 00:58] LABS: CSF CRYPTOCOCCUS AG CONF ND (NOT DETECTD)
[2016-09-25 07:18] VITALS: BP 120/78; PULSE 78; RESP 16; TEMP 98.3; O2SAT 0
[2016-09-25] MEDS: MULTIVITAMIN TAB PO SCH (07:48)
[2016-09-25] MEDS: DOCUSATE SODIUM 100 MG CAP PO SCH ×2 (07:48→20:23)
[2016-09-25] MEDS: NIFEdipine 60 MG SUSTAINED RELEASE TAB PO SCH (07:48)
[2016-09-25] MEDS: MAGNESIUM HYDROXIDE SUSP 30 ML CUP PO PRN (07:50)
[2016-09-25] MEDS: SODIUM CHLORIDE 0.9% FLUSH 5 ML FLUSH FLUSH SCH ×2 (07:50→20:23)
[2016-09-25] MEDS: MORPHINE SULFATE 30 MG CONTROLLED RELEASE TAB PO SCH ×2 (07:50→20:22)
[2016-09-25] MEDS: ACETAMINOPHEN 325 MG TAB PO PRN (10:20)
[2016-09-25 11:37] VITALS: BP 124/69; PULSE 86; RESP 16; TEMP 98.1; O2SAT 97
[2016-09-25 14:54] LABS: CRYPTOCOCCUS ANTIGEN Negative (Negative)
--- NOTE | 2016-09-25 15:10 | HHI.PR ---
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 Neurologic Neurologic Remarks Alert responsive talkative Psychiatric Psychiatric: Anxiety (mild) Vitals/Results Intake & Output 09/24/16 09/24/16 09/25/16 15:00 23:00 07:00 Intake Total 600 ml 600 ml 240 ml Output Total 175 ml Balance 600 ml 600 ml 65 ml Intake Oral 600 ml 600 ml 240 ml Output Urine Total 175 ml # Voids 3 3 # Bowel Movements 0 0 0 Vital Signs Vital Signs Date Time Temp Pulse Resp B/P Pulse Ox O2 Delivery O2 Flow Rate FiO2 09/25/16 11:37 98.1 86 16 124/69 97 09/25/16 07:18 98.3 78 16 120/78 0 09/25/16 00:00 99.5 77 18 140/75 99 09/24/16 20:00 97.8 75 18 144/82 99 09/24/16 16:00 99.7 84 18 119/63 100 CBC/BMP: 09/24/16 0437 09/21/16 0551 Imaging Remarks Last Impressions Brain MRI 09/22/16 0000 Signed Impressions: Service Date/Time: Thursday, September 22, 2016 08:10 - CONCLUSION: 1. No acute findings. No abnormal enhancement. Minimal signal abnormality in the periventricular white matter most characteristic of mild chronic ischemic demyelinization, commonly seen with history of hypertension. Remote tiny lacunar infarct left thalamus. Flex Mae MD Lumbar Puncture Fluoroscopy 09/21/16 0000 Signed Impressions: Service Date/Time: Wednesday, September 21, 2016 13:48 - CONCLUSION: Uncomplicated fluoroscopically guided lumbar puncture with pressures as above. Danial Basurto MD Chest CT 09/21/16 0000 Signed Impressions: Service Date/Time: Wednesday, September 21, 2016 17:52 - CONCLUSION: No abnormality is seen in the chest. Hypodensities are seen in the liver likely related to cysts. Ez Odell MD Abdomen Ultrasound 09/21/16 0000 Signed Impressions: Service Date/Time: Wednesday, September 21, 2016 16:47 - CONCLUSION: No acute disease. Hepatic cysts are seen. Ez Odell MD Current Medications Active Medications Acetaminophen (Tylenol) 650 mg Q4H PRN PO Last administered on 09/25/16t 10:20; Admin Dose 650 MG; Start 09/25/16 at 10:00 Physical Exam General General Appearance: Well Developed, Comfortable, Malnourished Eyes Eye Exam: Pupils Equal, Pupils Reactive Ears & Nose Ears & Nose Exam: Nasal Mucosa [place] Throat Throat Exam: Oral Mucosa [place] & Moist Neck Neck Exam: Trachea Midline Pulmonary Resp Exam: Breath Sounds Equal, No Distress Cardiology CV Exam: Normal Sinus Rhythm, Good Perfusion Gastrointestinal/Abdomen GI Exam: Non-Tender, Bowel Sounds Present Musculoskeletal MS Exam: Normal Tone Integumentary Skin Exam: Warm, Dry Extremeties Extremities Exam: No Edema, Pedal Pulses Palpable Neurologic Neuro Exam: Alert, Awake, Oriented, Speech Clear, Moving All Extremities, Promotions Director Equal, No Focal Deficits Psychiatric Psych Exam: Appropriate Responses VTE Prophylaxis VTE Prophylaxis Device: SCDs Assessment/Plan Assessment/Plan Assessment Lower extremity weakness. Improving, still has some soreness in Bilateral, but negative to tactile exam Status post lumbar puncture 09/21/16, results pending Lymphadenopathy. Etiology unclear Question myelopathy Poorly controlled hypertension. Left groin pain, improved Previously positive Q fever serology, significance unclear. Leukopenia, trending up today 3.7 Management. Neurosurgery consult noted, no indication for surgery at this time ID and Neurology following Labs pending Patient recommended to comply with the labs ordered. Requested no labs drawn today/ states he was supposed to have any more. Pain control Follow CBC DVT prophylaxis. Continue home medications. Discussed with patient. Supportive care through this hospital stay Mee Londono Sep 25, 2016 15:10
[2016-09-25 16:02] VITALS: BP 119/75; PULSE 74; RESP 16; TEMP 98.2; O2SAT 99
[2016-09-25 20:10] VITALS: BP 135/80; PULSE 76; RESP 16; TEMP 98.2; O2SAT 100
[2016-09-26 00:15] VITALS: BP 133/58; PULSE 89; RESP 17; TEMP 99.6; O2SAT 98
[2016-09-26 03:53] LABS: CD 19 PERCENT 3 % (6-29); CD3 ABSOLUTE 1253 (840-3060); CD4/CD8 RATIO 0.7 (0.86-5.00); CD8 ABSOLUTE 728 (180-1170); LYMPHOCYTES, ABSOLUTE 1405 (850-3900)
[2016-09-26] MEDS: DOCUSATE SODIUM 100 MG CAP PO SCH ×2 (07:58→21:00)
[2016-09-26] MEDS: NIFEdipine 60 MG SUSTAINED RELEASE TAB PO SCH (08:01)
[2016-09-26] MEDS: ACETAMINOPHEN 325 MG TAB PO PRN ×2 (08:01→18:22)
[2016-09-26] MEDS: SODIUM CHLORIDE 0.9% FLUSH 5 ML FLUSH FLUSH SCH ×2 (08:01→21:57)
[2016-09-26] MEDS: MULTIVITAMIN TAB PO SCH (08:01)
[2016-09-26] MEDS: MORPHINE SULFATE 30 MG CONTROLLED RELEASE TAB PO SCH ×2 (08:01→21:56)
[2016-09-26 08:05] VITALS: BP 137/63; PULSE 73; RESP 16; TEMP 98.7; O2SAT 99
[2016-09-26 11:32] VITALS: BP 127/79; PULSE 72; RESP 16; TEMP 98.5; O2SAT 100
[2016-09-26 15:59] LABS: AUTOMATED NEUTROPHIL # 1.9 TH/MM3 (1.8-7.7); BASOPHIL # 0.1 TH/MM3 (0-0.2); EOSINOPHIL # 0.1 TH/MM3 (0-0.4); EOSINOPHIL % 2.2 % (0.0-4.0); HEMATOCRIT 35.5 % (39.0-51.0); LYMPH % 48.5 % (9.0-44.0); LYMPHOCYTE # 2.6 TH/MM3 (1.0-4.8); MEAN CELL VOLUME 88.3 FL (80.0-100.0); MEAN CORPUSCULAR HGB CONC 32.9 % (32.0-36.0); MONO % 13.5 % (0.0-8.0); NEUT % 34.8 % (16.0-70.0); PLATELET COUNT 370 TH/MM3 (150-450); RED BLOOD COUNT 4.02 MIL/MM3 (4.50-5.90); RED CELL DISTRIBUTION WIDTH 12.8 % (11.6-17.2); WHITE BLOOD COUNT 5.4 TH/MM3 (4.0-11.0)
[2016-09-26 16:00] VITALS: BP 138/75; PULSE 83; RESP 16; TEMP 97.9; O2SAT 100
[2016-09-26 16:00] LABS: HEMO FLAGS DIFF FINAL
--- NOTE | 2016-09-26 16:04 | HHI.PR ---
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 Neurologic Neurologic Remarks Alert responsive talkative Psychiatric Psychiatric: Anxiety (mild) Vitals/Results Intake & Output 09/25/16 09/25/16 09/26/16 15:00 23:00 07:00 Intake Total 960 ml 720 ml 480 ml Balance 960 ml 720 ml 480 ml Intake Oral 960 ml 720 ml 480 ml # Voids 4 7 3 # Bowel Movements 0 1 0 Vital Signs Vital Signs Date Time Temp Pulse Resp B/P Pulse Ox O2 Delivery O2 Flow Rate FiO2 09/26/16 11:32 98.5 72 16 127/79 100 09/26/16 08:05 98.7 73 16 137/63 99 09/26/16 00:15 99.6 89 17 133/58 98 09/25/16 20:10 98.2 76 16 135/80 100 09/25/16 16:02 98.2 74 16 119/75 99 CBC/BMP: 09/24/16 0437 Physical Exam General General Appearance: Well Developed, Comfortable, Malnourished Eyes Eye Exam: Pupils Equal, Pupils Reactive Ears & Nose Ears & Nose Exam: Nasal Mucosa [place] Throat Throat Exam: Oral Mucosa [place] & Moist Neck Neck Exam: Trachea Midline Pulmonary Resp Exam: Breath Sounds Equal, No Distress Cardiology CV Exam: Normal Sinus Rhythm, Good Perfusion Gastrointestinal/Abdomen GI Exam: Non-Tender, Bowel Sounds Present Musculoskeletal MS Exam: Normal Tone, Good Strength (overcomes resistance) Integumentary Skin Exam: Warm, Dry Extremeties Extremities Exam: No Edema, Pedal Pulses Palpable Neurologic Neuro Exam: Alert, Awake, Oriented, Speech Clear, Moving All Extremities, Sampler Radioactive Waste Equal, No Focal Deficits Psychiatric Psych Exam: Appropriate Responses VTE Prophylaxis VTE Prophylaxis Device: SCDs Assessment/Plan Assessment/Plan Lower extremity weakness. Improving, able to ambulate and overcome resistance myelopathy , medical management. Neurology will be back in the a.m. to discuss plan of care hypertension., Controlled, Medical management Left groin pain, improved Leukopenia, trending up . Patient does not want any more labs drawn. ID and Neurology following Labs, patient is requesting no more lab draws Pain control DVT prophylaxis. Continue home medications. Nutritional support. Safety when out of bed Supportive care through this hospital stay Mee Londono Sep 26, 2016 16:04
[2016-09-26] MEDS: ONDANSETRON HCL 4 MG/2 ML VIAL IVP PRN (18:56)
[2016-09-26 20:00] VITALS: BP 138/77; PULSE 77; RESP 17; TEMP 99.5; O2SAT 98
[2016-09-27] VITALS: BP 137/82; PULSE 72; RESP 17; TEMP 98.6; O2SAT 98
[2016-09-27 08:00] VITALS: BP 121/69; PULSE 75; RESP 18; TEMP 100; O2SAT 98
[2016-09-27] MEDS: DOCUSATE SODIUM 100 MG CAP PO SCH (09:00)
[2016-09-27] MEDS: MORPHINE SULFATE 30 MG CONTROLLED RELEASE TAB PO SCH (09:50)
[2016-09-27] MEDS: NIFEdipine 60 MG SUSTAINED RELEASE TAB PO SCH (09:50)
[2016-09-27] MEDS: MULTIVITAMIN TAB PO SCH (09:50)
[2016-09-27] MEDS: SODIUM CHLORIDE 0.9% FLUSH 5 ML FLUSH FLUSH SCH (09:51)
--- NOTE | 2016-09-27 11:45 | PD.ONC.PN ---
Subjective Subjective Remarks Tmax 100F overnight. Patient resting comfortably without complaint. He is eager to know when he can go home. Objective Data Date Time Temp Pulse Resp B/P Pulse Ox O2 Delivery O2 Flow Rate FiO2 09/27/16 08:00 100.0 75 18 121/69 98 09/27/16 00:00 98.6 72 17 137/82 98 09/26/16 20:00 99.5 77 17 138/77 98 09/26/16 16:00 97.9 83 16 138/75 100 09/27/16 09/27/16 09/27/16 07:00 15:00 23:00 Intake Total 480 ml Balance 480 ml Result Diagram: 09/26/16 1434 Laboratory Results Laboratory Tests Test 09/26/16 14:34 White Blood Count 5.4 TH/MM3 Red Blood Count 4.02 MIL/MM3 Hemoglobin 11.7 GM/DL Hematocrit 35.5 % Mean Corpuscular Volume 88.3 FL Mean Corpuscular Hemoglobin 29.0 PG Mean Corpuscular Hemoglobin 32.9 % Concent Red Cell Distribution Width 12.8 % Platelet Count 370 TH/MM3 Mean Platelet Volume 10.2 FL Neutrophils (%) (Auto) 34.8 % Lymphocytes (%) (Auto) 48.5 % Monocytes (%) (Auto) 13.5 % Eosinophils (%) (Auto) 2.2 % Basophils (%) (Auto) 1.0 % Neutrophils # (Auto) 1.9 TH/MM3 Lymphocytes # (Auto) 2.6 TH/MM3 Monocytes # (Auto) 0.7 TH/MM3 Eosinophils # (Auto) 0.1 TH/MM3 Basophils # (Auto) 0.1 TH/MM3 CBC Comment DIFF FINAL Differential Comment Administered Medications Medications (Trade) Dose Ordered Sig/Sherice Route PRN Reason Start Time Stop Time Status Last Admin Dose Admin IV Flush (NS Flush) 2 ml BID FLUSH 09/20/16 21:00 09/27/16 09:51 Ondansetron HCl (Zofran Inj) 4 mg Q6H PRN IVP NAUSEA OR VOMITING 09/20/16 14:30 09/26/16 18:56 Tizanidine HCl (Zanaflex) 4 mg Q12H PO 09/20/16 18:45 09/27/16 06:53 Morphine Sulfate (Oramorph Sr) 30 mg Q12HR PO 09/20/16 21:00 09/27/16 09:50 Docusate Sodium (Colace) 100 mg BID PO 09/20/16 21:00 09/25/16 20:23 Multivitamins (Theragran) 1 tab DAILY PO 09/21/16 09:00 09/27/16 09:50 Nifedipine (Procardia Xl) 60 mg DAILY PO 09/21/16 17:00 09/27/16 09:50 Morphine Sulfate (Morphine Inj) 4 mg Q3H PRN IV SEVERE PAIN 09/22/16 05:30 09/22/16 17:09 Magnesium Hydroxide (Milk Of Magnphillip Liq) 30 ml DAILY PRN PO Prevent Constipation 09/22/16 13:30 09/25/16 07:50 Acetaminophen (Tylenol) 650 mg Q4H PRN PO HEADACHE 09/25/16 10:00 09/26/16 18:22 Objective Remarks GENERAL: Young man, sitting up in bed in [place]. SKIN: Warm and dry. HEAD: Normocephalic. EYES: No injection or drainage. NECK: Supple, trachea midline. CARDIOVASCULAR: Regular rate and rhythm RESPIRATORY: Breath sounds equal bilaterally. No accessory muscle use. GASTROINTESTINAL: Abdomen soft, non-tender, nondistended. EXTREMITIES: No cyanosis NEUROLOGICAL: AO x3. normal speech. moving extremities. Assessment/Plan Problem List: (1) Leukopenia Status: Acute Plan: WBC recovered --Mild neutropenia --Possibly due to mild marrow suppression. --Monitor CBC (2) Bilateral leg weakness Status: Acute Plan: -- Lumbar puncture on 09/21. Cytology negative -- MRI cervical spine showed abnormal signal in lower cervical cord; suspicious for myelopathy. -- CT chest, MRI brain negative for other suspicious processes. Assessment 56 y/o male with bilateral lower extremity weakness and paresthesias. Plan 1. cytology negative, WBC recovered. hematology will sign off. 2. patient clear for d/c Attending Statement The exam, history, and the medical decision-making described in the above note were completed with the assistance of the mid-level provider. I reviewed and agree with the findings presented. I attest that I had a [id number] encounter with the patient on the same day, and personally performed and documented my assessment and findings in the medical record. Feeling better. Reviewed cytology with him. Leukopenia has resolved. No other recommendation. I will sign off. Laly Salinas Sep 27, 2016 11:45 Marco Rizo MD Sep 27, 2016 17:00
[2016-09-27 12:00] VITALS: BP 136/88; PULSE 67; RESP 18; TEMP 99.9; O2SAT 98
--- NOTE | 2016-09-27 13:01 | HHI.PR ---
Subjective Subjective Remarks ambulating in room, doing ok, moves slowly fever 100 no cough no cp no sob anxious to go home Review of Systems Constitutional Constitutional Remarks 12 point ROS completed, negative except as noted above, unreliable Musculoskeletal MS: Weakness, Discomfort/Pain Psychiatric Psychiatric: Anxiety (mild) Vitals/Results Intake & Output 09/26/16 09/26/16 09/27/16 15:00 23:00 07:00 Intake Total 960 ml 480 ml 480 ml Balance 960 ml 480 ml 480 ml Intake Oral 960 ml 480 ml 480 ml # Voids 4 5 2 # Bowel Movements 0 0 0 Vital Signs Vital Signs Date Time Temp Pulse Resp B/P Pulse Ox O2 Delivery O2 Flow Rate FiO2 09/27/16 08:00 100.0 75 18 121/69 98 09/27/16 00:00 98.6 72 17 137/82 98 09/26/16 20:00 99.5 77 17 138/77 98 09/26/16 16:00 97.9 83 16 138/75 100 CBC/BMP: 09/26/16 1434 Lab Results Laboratory Tests Test 09/26/16 14:34 White Blood Count 5.4 TH/MM3 Red Blood Count 4.02 MIL/MM3 Hemoglobin 11.7 GM/DL Hematocrit 35.5 % Mean Corpuscular Volume 88.3 FL Mean Corpuscular Hemoglobin 29.0 PG Mean Corpuscular Hemoglobin 32.9 % Concent Red Cell Distribution Width 12.8 % Platelet Count 370 TH/MM3 Mean Platelet Volume 10.2 FL Neutrophils (%) (Auto) 34.8 % Lymphocytes (%) (Auto) 48.5 % Monocytes (%) (Auto) 13.5 % Eosinophils (%) (Auto) 2.2 % Basophils (%) (Auto) 1.0 % Neutrophils # (Auto) 1.9 TH/MM3 Lymphocytes # (Auto) 2.6 TH/MM3 Monocytes # (Auto) 0.7 TH/MM3 Eosinophils # (Auto) 0.1 TH/MM3 Basophils # (Auto) 0.1 TH/MM3 CBC Comment DIFF FINAL Differential Comment Physical Exam General General Appearance: Well Developed, Comfortable, Malnourished Eyes Eye Exam: Pupils Equal, Pupils Reactive Ears & Nose Ears & Nose Exam: Nasal Mucosa [place] Throat Throat Exam: Oral Mucosa [place] & Moist Neck Neck Exam: Trachea Midline Pulmonary Resp Exam: Breath Sounds Equal, No Distress Cardiology CV Exam: Normal Sinus Rhythm, Good Perfusion Gastrointestinal/Abdomen GI Exam: Non-Tender, Bowel Sounds Present Musculoskeletal MS Exam: Normal Tone, Good Strength (overcomes resistance) Integumentary Skin Exam: Warm, Dry Extremeties Extremities Exam: No Edema, Pedal Pulses Palpable Neurologic Neuro Exam: Alert, Awake, Oriented, Speech Clear, Moving All Extremities, Hard Candy Batch Mixer Equal, No Focal Deficits Psychiatric Psych Exam: Appropriate Responses VTE Prophylaxis VTE Prophylaxis Device: SCDs Assessment/Plan Assessment/Plan Lower extremity weakness. Status post lumbar puncture 09/21/16 Lymphadenopathy. Question myelopathy Poorly controlled hypertension. Left groin pain Previously positive Q fever serology, significance unclear. Leukopenia. Reflex HIV + Management. Neurology evaluated, input appreciated, signed off Neurosurgery consult noted and appreciated, cleared for dc, gave Rx for BP med, narc Infectious disease consultation, input appreciated. Off acyclovir per ID HIV antibody 1/2 positive, serology and genotype results noted CSF for HANSEL virus pending CD 4 counts okay, no need for abx needs to f/u Dr. Steele as OP DVT prophylaxis. monitor WBC PT eval, has been refusing Plan to discharge today, okay with ID F/U Dr. Steele as OP Diet-heart healthy Activity-as tolerated D/W RN D/W Dr. Leon D/W pt D/W Dr. Jalloh This patient was seen by myself and Dr. Leon, this note is written on his behalf. Discharge Minutes: 45 Essie Cabral Sep 27, 2016 13:01
--- NOTE | 2016-09-27 13:33 | HHI.DCPOC ---
Discharge Care Plan Diagnosis: (1) Myelopathy (2) HTN (hypertension) (3) Bilateral leg weakness (4) Adrenal abnormality (5) HIV (human immunodeficiency virus infection) (6) Leukopenia Your Health Problems Are: Anxiety Difficulty with ADL Goals to Promote Your Health * To prevent worsening of your condition and complications * To maintain your health at the optimal level Directions to Meet Your Goals Take your medications as prescribed Follow your dietary instruction Follow activity as directed Keep your appointments as scheduled Take your immunizations and boosters as scheduled If your symptoms worsen call your PCP, if no PCP go to Urgent Care Center or Emergency Room Smoking is Dangerous to Your Health. Avoid second hand smoke Call the 24-hour hour crisis hotline for domestic abuse at Essie Cabral Sep 27, 2016 13:33
--- NOTE | 2016-09-27 14:31 | HHI.DS ---
Discharge Summary Admission Date Sep 20, 2016 at 14:49 Discharge Date: Sep 27, 2016 Admitting Diagnosis cervical myelopathy (1) Bilateral leg weakness (2) HIV (human immunodeficiency virus infection) (3) HTN (hypertension) (4) Degenerative disc disease at L5-S1 level (5) Leukopenia (6) Uncontrolled hypertension (7) Myelopathy Procedures Lumbar Puncture Fluoroscopy 09/21/16 Brief History CBC/BMP: 09/26/16 1434 Significant Findings Laboratory Tests Test 09/26/16 14:34 Red Blood Count 4.02 MIL/MM3 (4.50-5.90) Hemoglobin 11.7 GM/DL (13.0-17.0) Hematocrit 35.5 % (39.0-51.0) Lymphocytes (%) (Auto) 48.5 % (9.0-44.0) Monocytes (%) (Auto) 13.5 % (0.0-8.0) Imaging Last Impressions Brain MRI 09/22/16 0000 Signed Impressions: Service Date/Time: Thursday, September 22, 2016 08:10 - CONCLUSION: 1. No acute findings. No abnormal enhancement. Minimal signal abnormality in the periventricular white matter most characteristic of mild chronic ischemic demyelinization, commonly seen with history of hypertension. Remote tiny lacunar infarct left thalamus. Flex Mae MD Lumbar Puncture Fluoroscopy 09/21/16 0000 Signed Impressions: Service Date/Time: Wednesday, September 21, 2016 13:48 - CONCLUSION: Uncomplicated fluoroscopically guided lumbar puncture with pressures as above. Danial Basurto MD Chest CT 09/21/16 0000 Signed Impressions: Service Date/Time: Wednesday, September 21, 2016 17:52 - CONCLUSION: No abnormality is seen in the chest. Hypodensities are seen in the liver likely related to cysts. Ez Odell MD Abdomen Ultrasound 09/21/16 0000 Signed Impressions: Service Date/Time: Wednesday, September 21, 2016 16:47 - CONCLUSION: No acute disease. Hepatic cysts are seen. Ez Odell MD Hospital Course This is a 56 year old man who presented to the ED with a complaint of pain and weakness in the bilateral lower extremities. He indicated that it began Donte night. Describes the pain as tingling sensation which causes legs to tense and feel numb. He became concerned when he began to affect his gait. He denies any spinal cord injury. No saddle anesthesia. Initially went to [facility] on 09/19 and had an abnormal MRI of the cervical spine. He was told to come to [facility] but he left AMA to return home because he "had some things to do at home. 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 Patient was admitted for: Lower extremity weakness. Status post lumbar puncture 09/21/16 Lymphadenopathy. Question myelopathy Poorly controlled hypertension. Left groin pain Previously positive Q fever serology, significance unclear. Leukopenia. Reflex HIV + During the course of the hospitalization, the following took place: Pt. admitted, multiple consultants obtained-ID, neurology, neurosurgery, endocrinology, hematology, Neurology evaluated, input appreciated, signed off Neurosurgery consulted, believed it was probable viral myelitis, recommended to continue spasticity and neuropathic management. Pain management started. ID evaluated, work up done, initially on antibiotics Had LP, cytology negative. HIV work up done, HIV antibody 1/2 positive Acyclovir discontinued Had serology and genotype done, HIV type 1 CSF for HANSEL virus pending-was to f/u with ID as OP CD 4 counts done-results were stable, no need for abx Dr. Jalloh discussed findings with patient, recommended follow up with Dr. Steele as OP. He was not sure if he had insurance as he lost his job recently, he was told to follow up with [facility] Department Nephrology evaluated for adenoma, also BP uncontrolled. Dr. Velasquez reviewed CT scan and it appeared left adrenal adenoma was benign- appearing, there was no indication to do further workup BP better controlled with Procardia Hematology evaluated for leukopenia WBC recovered Possibly due to mild marrow suppression. Monitored CBC Was ordered appropriate DVT prophylaxis. monitored WBC PT evaluation done, refused most of the time, did started ambulating in room without any devices. Pain improved BP improved Pt. was stable for discharge, was cleared for ID Instructed to: F/U Dr. Steele as OP or health department Diet-heart healthy Activity-as tolerated Pt. would need to apply for disability, he would follow up with PCP to complete paperwork. Pt Condition on Discharge: Stable Discharge Disposition: Discharge Home Discharge Instructions DIET: Follow Instructions for: Heart Healthy Diet Activities you can perform: Weight Bearing as Baudilio Activities to Avoid: Strenuous Activity Follow up Referrals: Appointment for Follow Up @ [facility] with Cheryle Steele MD PCP Follow-up - 1 Week New Medications: Morphine ER (Morphine ER) 30 Mg Tab 30 MG PO Q12HR Pain Management #60 Ref 0 TAB Nifedipine ER 24 HR (Nifedical XL) 60 Mg Tab 60 MG PO DAILY htn #30 Ref 5 TAB Tizanidine (Zanaflex) 4 Mg Tab 4 MG PO Q12H PRN muscle spasms #60 Ref 5 TAB Discontinued Medications: Hydrochlorothiazide (Hydrochlorothiazide) 12.5 Mg Cap 12.5 MG PO DAILY #30 Ref 0 CAP Essie Cabral Sep 27, 2016 14:31
--- NOTE | 2016-09-27 14:33 | HHI.IDPN ---
Subjective Subjective Remarks is a 56-y/o AAM presents to the ED at [facility] for LLE weakness, unsteady gait. s/p LP for possible myelitis, also being followed for leucopenia of uncertain etiology. Overnight events reviewed No rash No diarrhea Wants to go home. Antibiotics None Lines Line sites with no e/o infection Past Medical History reviewed. Allergies: Coded Allergies: No Known Allergies (Verified , 09/19/16) Objective . Vital Signs Date Time Temp Pulse Resp B/P Pulse Ox O2 Delivery O2 Flow Rate FiO2 09/27/16 08:00 100.0 75 18 121/69 98 09/27/16 00:00 98.6 72 17 137/82 98 09/26/16 20:00 99.5 77 17 138/77 98 09/26/16 16:00 97.9 83 16 138/75 100 09/26/16 09/26/16 09/27/16 15:00 23:00 07:00 Intake Total 960 ml 480 ml 480 ml Balance 960 ml 480 ml 480 ml Intake Oral 960 ml 480 ml 480 ml # Voids 4 5 2 # Bowel Movements 0 0 0 . Laboratory Tests Test 09/26/16 14:34 White Blood Count 5.4 TH/MM3 Red Blood Count 4.02 MIL/MM3 Hemoglobin 11.7 GM/DL Hematocrit 35.5 % Mean Corpuscular Volume 88.3 FL Mean Corpuscular Hemoglobin 29.0 PG Mean Corpuscular Hemoglobin 32.9 % Concent Red Cell Distribution Width 12.8 % Platelet Count 370 TH/MM3 Mean Platelet Volume 10.2 FL Neutrophils (%) (Auto) 34.8 % Lymphocytes (%) (Auto) 48.5 % Monocytes (%) (Auto) 13.5 % Eosinophils (%) (Auto) 2.2 % Basophils (%) (Auto) 1.0 % Neutrophils # (Auto) 1.9 TH/MM3 Lymphocytes # (Auto) 2.6 TH/MM3 Monocytes # (Auto) 0.7 TH/MM3 Eosinophils # (Auto) 0.1 TH/MM3 Basophils # (Auto) 0.1 TH/MM3 CBC Comment DIFF FINAL Differential Comment Imaging Last Impressions Brain MRI 09/22/16 0000 Signed Impressions: Service Date/Time: Thursday, September 22, 2016 08:10 - CONCLUSION: 1. No acute findings. No abnormal enhancement. Minimal signal abnormality in the periventricular white matter most characteristic of mild chronic ischemic demyelinization, commonly seen with history of hypertension. Remote tiny lacunar infarct left thalamus. Flex Mae MD Lumbar Puncture Fluoroscopy 09/21/16 Signed Impressions: Service Date/Time: Wednesday, September 21, 2016 13:48 - CONCLUSION: Uncomplicated fluoroscopically guided lumbar puncture with pressures as above. Danial Basurto MD Chest CT 09/21/16 Signed Impressions: Service Date/Time: Wednesday, September 21, 2016 17:52 - CONCLUSION: No abnormality is seen in the chest. Hypodensities are seen in the liver likely related to cysts. Ez Odell MD Abdomen Ultrasound 09/21/16 Signed Impressions: Service Date/Time: Wednesday, September 21, 2016 16:47 - CONCLUSION: No acute disease. Hepatic cysts are seen. Ez Odell MD Physical Exam GENERAL: Thin built, well nourished patient, in no apparent distress. SKIN: No rashes, ecchymoses or lesions. Cool and dry. HEAD: Atraumatic. Normocephalic. No temporal or scalp tenderness. EYES: Pupils equal round and reactive. Extraocular motions intact. No scleral icterus. No injection or drainage. ENT: Nose without bleeding, purulent drainage or septal hematoma. Throat without erythema, tonsillar hypertrophy or exudate. Uvula midline. Airway patent. NECK: Trachea midline. Supple, nontender, no meningeal signs. CARDIOVASCULAR: HS audible. No murmur appreciated. RESPIRATORY: Clear to auscultation. Breath sounds equal bilaterally. No wheezes , rales, or rhonchi. GASTROINTESTINAL: Abdomen soft, non-tender, nondistended. MUSCULOSKELETAL: Extremities without clubbing, cyanosis, or edema. No joint tenderness, effusion, or edema noted. No calf tenderness. Negative Homans sign bilaterally. NEUROLOGICAL: Awake and alert. Left UE 4+/5. LLE power 3 +/5. Inguinal LNs palpable, non tender, shotty LNs. No penile lesions. (RN was my healthcare network consultant) Psych: cooperative IV line sites with no e/o infection. 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 HIV related Inguinal hernia s/p surgery and lymph node biopsy and ? removal. Left LE weakness ? related to pain G6PD positive. Recs: CSF HSV PCR Negative HIV antibody 1/2 positive. Follow HIV genotype and phenotype. CSF VDRL negative. No antibiotics on discharge. Patient is to follow with Dr.Reba Steele or health dept. He informs me he is unsure of his insurance status at this point and his lean sensei is trying to help him d/w . Will sign off please call back if any change in clinical condition or questions. Flor Jalloh MD Sep 27, 2016 14:33
[2016-09-28 14:43] LABS: MITOGEN MINUS NIL RESULT >10.00 IU/mL (()); NIL RESULT 0.16 IU/mL (()); QUANTIFERON TB GOLD RESULT Negative (Negative)
[2016-09-28 20:47] LABS: HIV-1 GENOTYPING Unable to genotype (())
== END 2016-09-27 19:22 | disposition home or self-care (01) | DRG 99 ==
LOC: NEPA 12:54 → NEDA 14:26 → OBSVTOIN 14:49 → N06A 17:36
PROVIDERS: ADMIT Specialist; ATTEND Specialist
PROC: 009U3ZX Drainage of Spinal Canal, Percutaneous Approach, Diagnostic (ICD-10-PCS; principal; 2016-09-21)
PROC: B01BZZZ Fluoroscopy of Spinal Cord (ICD-10-PCS; 2016-09-21)
DX: G04.89 Other myelitis (principal); D70.9 Neutropenia, unspecified; I10 Essential (primary) hypertension; Z21 Asymptomatic human immunodeficiency virus [HIV] infection status; R63.4 Abnormal weight loss; D72.819 Decreased white blood cell count, unspecified; M51.37 Other intervertebral disc degeneration, lumbosacral region; I88.9 Nonspecific lymphadenitis, unspecified; G97.1 Other reaction to spinal and lumbar puncture; D35.02 Benign neoplasm of left adrenal gland; F17.210 Nicotine dependence, cigarettes, uncomplicated
CPT/HCPCS: 62270; 70553; 71260; 76700; 77003; 80048; 80074; 80076; 81001; 82040; 82042; 82607; 82728; 82746; 82784; 82945; 82955; 83540; 83550; 83615; 83916; 83921; 84157; 84443; 85007; 85025; 85027; 85610; 85652; 85730; 86140; 86355; 86357; 86359; 86360; 86403; 86480; 86592; 86701; 86702; 86703; 87015; 87040; 87070; 87102; 87116; 87205; 87206; 87491; 87529; 87535; 87591; 87799; 87901; 89051; A9579; J0133; J1100; J2270; J2405; Q9967